=== PATIENT | female | born 1985 | race Caucasian/White ===

== ENCOUNTER 2017-07-29 05:24 | Inpatient (IN) | payer MEDICAID ==
[2017-07-29] MEDS ORDERED: Methylergonovine 0.2 MG/1 ML Amp IM PRN (06:05)
[2017-07-29] MEDS ORDERED: Misoprostol 200 MCG Tab PO PRN (06:05)
[2017-07-29] MEDS ORDERED: Sodium Chloride 0.9% 10 ML Syringe FLUSH PRN (06:05)
[2017-07-29] MEDS ORDERED: Butorphanol 1 MG/ML SDV IVPUSH PRN (06:05)
[2017-07-29] MEDS ORDERED: Ampicillin 2 GM in Sodium Chloride 0.9% 100 ML IV ONE (06:05)
[2017-07-29] MEDS ORDERED: Carboprost Tromethamine 250 MCG/1 ML Amp IM PRN (06:05)
[2017-07-29] MEDS ORDERED: Sodium Chloride 0.9% 2.5 ML Syringe FLUSH PRN (06:05)
[2017-07-29] MEDS ORDERED: Lidocaine 1% 50 ML MDV INJECT PRN (06:05)
[2017-07-29] MEDS ORDERED: Nalbuphine 10 MG/1 ML Vial IVPUSH PRN (06:05)
[2017-07-29] MEDS ORDERED: Water For Irrigation,Sterile 1,000 ML Container IRR PRN (06:05)
[2017-07-29] MEDS ORDERED: Oxytocin/0.9 % Sodium Chloride 30 UNIT/500 ML BAG IV SCH (06:15)
[2017-07-29] MEDS ORDERED: Lactated Ringers 1,000 ML IV SCH ×2 (06:15→17:30)
--- NOTE | 2017-07-29 07:35 | PCM.LDHP ---
L&D History of Present Illness - General Date of Service: 07/29/17 Admit Problem/Dx: Patient Status Order with Admit Dx/Problem 07/29/17 06:05 Patient Status [ADT] Routine Admission Diagnosis/Problem Admission Diagnosis/Problem Source of Information: Patient History Limitations: Reports: No Limitations - History of Present Illness Improves with: Reports: None Worsens with: Reports: None Associated Symptoms: Reports: N - Related Data Allergies/Adverse Reactions: Allergies Allergy/AdvReac Type Severity Reaction Status Date / Time acetaminophen [From Vicodin] Allergy Nausea Verified 07/29/17 06:02 hydrocodone [From Vicodin] Allergy Nausea Verified 07/29/17 06:02 sulfamethoxazole Allergy Nausea and Verified 07/29/17 06:02 [From Bactrim] Vomiting trimethoprim [From Bactrim] Allergy Nausea and Verified 07/29/17 06:02 Vomiting Past Medical History HEENT History: Reports: Impaired Vision Genitourinary History: Reports: Other (See Below) Other Genitourinary History: one kidney-congenital 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: 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 History: Reports: Fracture Neurological History: Reports: Concussion Psychiatric 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 Dermatologic History: Reports: Eczema - Infectious Disease History Infectious Disease History: Reports: Chicken Pox, Mononucleosis - Past Surgical History Female Surgical History: Reports: Other (See Below) Other Female Surgeries/Procedures: vaginal septum removed Social & Family History - Family History HEENT: Reports: Hearing Impairment, Impaired Vision Cardiac: Reports: Heart Murmur : Reports: Renal Calculus OBGYN: Reports: 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: Reports: Arthritis, Back pain, Chronic Neurological: Reports: Parkinson's H&P Review of Systems - Review of Systems: Review Of Systems: See Below General: Reports: No Symptoms HEENT: Reports: No Symptoms Pulmonary: Reports: No Symptoms Cardiovascular: Reports: No Symptoms Gastrointestinal: Reports: No Symptoms Genitourinary: Reports: No Symptoms 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: Reports: No Symptoms Skin: Reports: No Symptoms Psychiatric: Reports: No Symptoms Neurological: Reports: No Symptoms Hematologic/Lymphatic: Reports: No Symptoms Immunologic: Reports: No Symptoms L&D Exam - Exam Exam: See Below - Vital Signs Weight: 111.584 kg - OB Specific Fundal Height In cm: 39 Contraction Intensity: Mild Movement: Active Heart Tones: Present Presentation: Vertex - Burgess Score Burgess Score Cervix Position: Midposition Burgess Score Consistency: Medium Burgess Score Effacement: 51-70% Burgess Score Dilation: 1-2 cm Burgess Score Infant's Station: -2 Burgess Score Total: 6 - Exam General: Alert, Oriented HEENT: PERRLA, Conjunctiva Clear, EACs Clear, EOMI, Hearing Intact, Mucosa Moist & Zimmerman, Nares Patent, Normal Nasal Septum, Posterior Pharynx Clear, TMs Clear Neck: Supple, Trachea Midline Lungs: Clear to Auscultation, Normal Respiratory Effort Cardiovascular: Regular Rate, Regular Rhythm GI/Abdominal Exam: Normal Bowel Sounds, Soft, Non-Tender, No Organomegaly, No Distention, No Abnormal Bruit, No Mass, Pelvis Stable Rectal Exam: Normal Exam, Normal Rectal Tone Genitourinary: Normal external exam, Normal bimanual exam, Normal speculum exam Back Exam: Normal Inspection, Full Range of Motion Extremities: Normal Inspection, Normal Range of Motion, Non-Tender, No Pedal Edema, Normal Capillary Refill Skin: Warm, Dry, Intact Neurological: Cranial Nerves Intact, Reflexes Equal Bilateral Psychiatric: Alert, Normal Affect, Normal Mood - Patient Data Lab Results Last 24 hrs: Laboratory Results - last 24 hr 07/29/17 Range/Units 06:34 WBC 11.17 H (4.0-11.0) K/uL RBC 4.29 L (4.30-5.90) M/uL Hgb 13.8 (12.0-16.0) g/dL Hct 40.1 (36.0-46.0) % MCV 93.5 (80.0-98.0) fL MCH 32.2 H (27.0-32.0) pg MCHC 34.4 (31.0-37.0) g/dL RDW Std Deviation 48.2 (28.0-62.0) fl RDW Coeff of Fatuma 14 (11.0-15.0) % Plt Count 240 (150-400) K/uL MPV 10.00 (7.40-12.00) fL Nucleated RBC % 0.0 /100WBC Nucleated RBCs # 0 K/uL Result Diagrams: 07/29/17 06:34 Problem List Initiated/Reviewed/Updated: Yes Orders Last 24hrs: Active Orders 24 hr Category Date Time Status Patient Status [ADT] Routine ADT 07/29/17 06:05 Active Heart Tones [RC] CONTINUOUS Care 07/29/17 06:05 Active Non Stress Test [RC] PER UNIT ROUTINE Care 07/29/17 06:05 Active May Shower [RC] ASDIRECTED Care 07/29/17 06:05 Active Notify Provider [RC] PRN Care 07/29/17 06:05 Active Up ad Lydia [RC] ASDIRECTED Care 07/29/17 06:05 Active Vaginal Exam [RC] PRN Care 07/29/17 06:05 Active Vital Signs [RC] PER UNIT ROUTINE Care 07/29/17 06:05 Active TYPE AND SCREEN [BBK] Routine Lab 07/29/17 06:34 Received Butorphanol [Stadol] Med 07/29/17 06:05 Active 1 mg IVPUSH Q1H PRN Carboprost Tromethamine [Hemabate DS] Med 07/29/17 06:05 Active 250 mcg IM ASDIRECTED PRN Lactated Ringers [Ringers, Lactated] 1,000 ml Med 07/29/17 06:15 Active IV ASDIRECTED Lidocaine 1% [Xylocaine 1%] Med 07/29/17 06:05 Active 50 ml INJECT .ONCE PRN Methylergonovine [Methergine] Med 07/29/17 06:05 Active 0.2 mg IM ASDIRECTED PRN Misoprostol [Cytotec] Med 07/29/17 06:05 Active 200 mcg PO .ONCE PRN Nalbuphine [Nubain] Med 07/29/17 06:05 Active 10 mg IVPUSH Q1H PRN Oxytocin/0.9 % Sodium Chloride [Oxytocin 30 Unit/500 ML Med 07/29/17 06:15 Active -NS] 30 unit in 500 ml IV TITRATE Sodium Chloride 0.9% [Saline Flush] Med 07/29/17 06:05 Active 10 ml FLUSH ASDIRECTED PRN Sodium Chloride 0.9% [Saline Flush] Med 07/29/17 06:05 Active 2.5 ml FLUSH ASDIRECTED PRN Water For Irrigation,Sterile [Sterile Water for Med 07/29/17 06:05 Active Irrigation] 1,000 ml IRR ASDIRECTED PRN Scalp Electrode [WOMSER] Per Unit Routine Oth 07/29/17 06:05 Ordered Peripheral IV Insertion Adult [OM.PC] Routine Oth 07/29/17 06:05 Ordered Resuscitation Status Routine Resus Stat 07/29/17 06:05 Ordered Medication Orders Butorphanol Tartrate (Stadol) 1 mg IVPUSH Q1H PRN PRN Reason: Pain Carboprost Tromethamine (Hemabate Ds) 250 mcg IM ASDIRECTED PRN PRN Reason: Post Hemorrhage Lactated Ringer's (Ringers, Lactated) 1,000 mls @ 150 mls/hr IV ASDIRECTED [facility] Last Admin: 07/29/17 06:34 Dose: 150 mls/hr Oxytocin/Sodium Chloride (Oxytocin 30 Unit/500 Ml-Ns) 30 unit in 500 mls @ 500 mls/hr IV TITRATE [facility] Lidocaine HCl (Xylocaine 1%) 50 ml INJECT .ONCE PRN PRN Reason: Laceration repair Methylergonovine Maleate (Methergine) 0.2 mg IM ASDIRECTED PRN PRN Reason: Post Hemorrhage Misoprostol (Cytotec) 200 mcg PO .ONCE PRN PRN Reason: Post Hemorrhage Nalbuphine HCl (Nubain) 10 mg IVPUSH Q1H PRN PRN Reason: Pain (severe 7-10) Sodium Chloride (Saline Flush) 10 ml FLUSH ASDIRECTED PRN PRN Reason: Keep Vein Open Sodium Chloride (Saline Flush) 2.5 ml FLUSH ASDIRECTED PRN PRN Reason: Keep Vein Open Sterile Water (Sterile Water For Irrigation) 1,000 ml IRR ASDIRECTED PRN PRN Reason: delivery Assessment/Plan Comment:: Term ( 39+) admited inearly active labor with SROM. 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 GBS tatus is postive. Plane toon antibiotic and induce with Cytotec.
[2017-07-29] MEDS ORDERED: Misoprostol 25 MCG (1/4 of 100 MCG) Tab PO ONE (08:18)
[2017-07-29] MEDS ORDERED: Misoprostol 25 MCG (1/4 of 100 MCG) Tab VAG ONE (08:19)
[2017-07-29] MEDS: Ampicillin 1 GM in Sodium Chloride 0.9% 50 ML IV SCH ×2 (11:05→14:47)
[2017-07-29] MEDS: Misoprostol 25 MCG (1/4 of 100 MCG) Tab PO SCH (13:49)
[2017-07-29] MEDS: Misoprostol 25 MCG (1/4 of 100 MCG) Tab VAG SCH (13:49)
[2017-07-29] MEDS ORDERED: Citric Acid/Sodium Citrate Solution 30 ML Cup ONE (16:19)
[2017-07-29] MEDS ORDERED: Ondansetron 4 MG/2 ML SDV ONE (16:32)
[2017-07-29] MEDS ORDERED: Sodium Chloride 0.9% 20 ML ONE (16:32)
[2017-07-29] MEDS ORDERED: ceFAZolin 1 GM Vial ONE (16:32)
[2017-07-29] MEDS ORDERED: Oxytocin 10 Units/1 ML SDV ONE (16:32)
[2017-07-29] MEDS ORDERED: Morphine PF 10 MG/10 ML SDV ONE (16:33)
[2017-07-29] MEDS ORDERED: Succinylcholine/Normal Saline 200 MG/10 ML Syringe ONE (16:35)
[2017-07-29] MEDS ORDERED: Rocuronium 10 MG/ML 10 ML Syringe ONE (16:35)
[2017-07-29] MEDS ORDERED: Propofol 200 MG/20 ML SDV ONE (16:35)
[2017-07-29] MEDS ORDERED: fentaNYL 250 MCG/5 ML SDV ONE (16:36)
[2017-07-29] MEDS ORDERED: Midazolam 1 MG/ML 2 ML SDV ONE (16:36)
[2017-07-29] MEDS ORDERED: HYDROmorphone 2 MG/ML Syringe ONE (17:07)
[2017-07-29] MEDS ORDERED: Neostigmine Methylsulfate 1 MG/ML 5 ML Syringe ONE (17:11)
[2017-07-29] MEDS ORDERED: Octyl 2-Cyanoacrylate 1 Tube ONE (17:13)
[2017-07-29] MEDS ORDERED: Bisacodyl 10 MG Supp RECTAL PRN (17:17)
[2017-07-29] MEDS ORDERED: Ibuprofen 800 MG Tab PO PRN (17:17)
[2017-07-29] MEDS ORDERED: diphenhydrAMINE 50 MG/ML SDV IVPUSH PRN (17:17)
[2017-07-29] MEDS ORDERED: Ondansetron 4 MG/2 ML SDV IV PRN (17:17)
[2017-07-29] MEDS ORDERED: Acetaminophen/oxyCODONE 325-5 MG Tab PO PRN ×2 (17:17)
[2017-07-29] MEDS ORDERED: Lanolin 100% Cream 7 GM Tube TOP PRN (17:17)
--- NOTE | 2017-07-29 17:18 | PCM.PREANE ---
Preanesthetic Assessment - Anesthesia/Transfusion/Family Hx Anesthesia History: Prior Anesthesia Without Reaction Family History of Anesthesia Reaction: No Transfusion History: No Prior Transfusion(s) - Review of Systems General: No Symptoms Pulmonary: No Symptoms Cardiovascular: No Symptoms Gastrointestinal: No Symptoms Neurological: No Symptoms Other: Reports: None - Physical Assessment NPO Status Date: 07/28/17 NPO Status Time: 23:00 (for solids, liquids within the hour) Height: 1.66 m Weight: 111.584 kg ASA Class: 3E Mental Status: Alert & Oriented x3 Airway Class: Mallampati = 3 Dentition: Reports: Normal Dentition ROM/Head Extension: Full Lungs: Clear to Auscultation Cardiovascular: Regular Rate - Lab Values: Laboratory Last Values WBC 11.17 K/uL (4.0-11.0) H 07/29/17 06:34 RBC 4.29 M/uL (4.30-5.90) L 07/29/17 06:34 Hgb 13.8 g/dL (12.0-16.0) 07/29/17 06:34 Hct 40.1 % (36.0-46.0) 07/29/17 06:34 MCV 93.5 fL (80.0-98.0) 07/29/17 06:34 MCH 32.2 pg (27.0-32.0) H 07/29/17 06:34 MCHC 34.4 g/dL (31.0-37.0) 07/29/17 06:34 RDW Std Deviation 48.2 fl (28.0-62.0) 07/29/17 06:34 RDW Coeff of Fatuma 14 % (11.0-15.0) 07/29/17 06:34 Plt Count 240 K/uL (150-400) 07/29/17 06:34 MPV 10.00 fL (7.40-12.00) 07/29/17 06:34 Nucleated RBC % 0.0 /100WBC 07/29/17 06:34 Nucleated RBCs # 0 K/uL 07/29/17 06:34 Blood Type A POSITIVE 07/29/17 06:34 Antibody Screen NEGATIVE 07/29/17 06:34 - Allergies Allergies/Adverse Reactions: Allergies Allergy/AdvReac Type Severity Reaction Status Date / Time acetaminophen [From Vicodin] Allergy Nausea Verified 07/29/17 06:02 hydrocodone [From Vicodin] Allergy Nausea Verified 07/29/17 06:02 sulfamethoxazole Allergy Nausea and Verified 07/29/17 06:02 [From Bactrim] Vomiting trimethoprim [From Bactrim] Allergy Nausea and Verified 07/29/17 06:02 Vomiting - Blood Blood Available: Yes - Anesthesia Plan Pre-Op Medication Ordered: Antacids - Acknowledgements Anesthesia Type Planned: General Anesthesia Pt an Appropriate Candidate for the Planned Anesthesia: Yes Alternatives and Risks of Anesthesia Discussed w Pt/Guardian: Yes Pt/Guardian Understands and Agrees with Anesthesia Plan: Yes Additional Comments: Called for an urgent/emergent c/section. Mother complete, ron breech, buttocks presenting at vaginal entroitus. decels now to 60's at time of anesthesia evaluation of pt on OB floor. nkda (only an intolerance with nausea and vomiting to sulfa and hydrocodone), 111kg, bmi=40, plts =240. Brought emergently to OR. surgeon met us during transport of pt. Pt placed on table, LLD acheived, monitors on, positioned for GA. iv access lost iv during transfer to or table. new iv started, antibiotics given, abdomen prepped, induction drugs given, RSI, ETT placed, surgical incision made. No hypotension. Baby delivered with APGARS of 2,8, and 9. 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 History: Reports: Fracture Neurological History: Reports: Concussion Psychiatric 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 Dermatologic History: Reports: Eczema - Infectious Disease History Infectious Disease History: Reports: Chicken Pox, Mononucleosis - Past Surgical History Female Surgical History: Reports: Other (See Below) Other Female Surgeries/Procedures: vaginal septum removed - SUBSTANCE USE Smoking Status *Q: Former Smoker Tobacco Use Within Last Twelve Months: Cigarettes Second Hand Smoke Exposure: No Recreational Drug Use History: No - CURRENT (IN HOUSE) MEDS Current Meds: Current Medications Butorphanol Tartrate (Stadol) 1 mg IVPUSH Q1H PRN PRN Reason: Pain Carboprost Tromethamine (Hemabate Ds) 250 mcg IM ASDIRECTED PRN PRN Reason: Post Hemorrhage Lactated Ringer's (Ringers, Lactated) 1,000 mls @ 150 mls/hr IV ASDIRECTED [facility] Last Admin: 07/29/17 06:34 Dose: 150 mls/hr Oxytocin/Sodium Chloride (Oxytocin 30 Unit/500 Ml-Ns) 30 unit in 500 mls @ 500 mls/hr IV TITRATE [facility] Ampicillin Sodium 1 gm/ Sodium (Chloride) 50 mls @ 100 mls/hr IV Q4H [facility] Last Admin: 07/29/17 14:47 Dose: 100 mls/hr Lidocaine HCl (Xylocaine 1%) 50 ml INJECT .ONCE PRN PRN Reason: Laceration repair Methylergonovine Maleate (Methergine) 0.2 mg IM ASDIRECTED PRN PRN Reason: Post Hemorrhage Misoprostol (Cytotec) 200 mcg PO .ONCE PRN PRN Reason: Post Hemorrhage Misoprostol (Cytotec) 25 mcg PO Q4H [facility] Last Admin: 07/29/17 13:49 Dose: Not Given Misoprostol (Cytotec) 25 mcg VAG Q4H [facility] Last Admin: 07/29/17 13:49 Dose: Not Given Nalbuphine HCl (Nubain) 10 mg IVPUSH Q1H PRN PRN Reason: Pain (severe 7-10) Sodium Chloride (Saline Flush) 10 ml FLUSH ASDIRECTED PRN PRN Reason: Keep Vein Open Sodium Chloride (Saline Flush) 2.5 ml FLUSH ASDIRECTED PRN PRN Reason: Keep Vein Open Sterile Water (Sterile Water For Irrigation) 1,000 ml IRR ASDIRECTED PRN PRN Reason: delivery Discontinued Medications Cefazolin Sodium (Ancef) Confirm Administered Dose 2 gm .ROUTE .STK-MED ONE Stop: 07/29/17 16:33 Citric Acid/Sodium Citrate (Bicitra Solution) Confirm Administered Dose 30 ml .ROUTE .STK-MED ONE Stop: 07/29/17 16:20 Fentanyl (Sublimaze) Confirm Administered Dose 250 mcg .ROUTE .STK-MED ONE Stop: 07/29/17 16:37 Hydromorphone HCl (Dilaudid) Confirm Administered Dose 2 mg .ROUTE .STK-MED ONE Stop: 07/29/17 17:08 Ampicillin Sodium 2 gm/ Sodium (Chloride) 100 mls @ 200 mls/hr IV ONETIME ONE Stop: 07/29/17 06:34 Last Admin: 07/29/17 06:40 Dose: 200 mls/hr Sodium Chloride (Normal Saline) Confirm Administered Dose 20 mls @ as directed .ROUTE .STK-MED ONE Stop: 07/29/17 16:33 Midazolam HCl (Versed 1 Mg/Ml) Confirm Administered Dose 2 mg .ROUTE .STK-MED ONE Stop: 07/29/17 16:37 Misoprostol (Cytotec) 25 mcg PO ONETIME ONE Stop: 07/29/17 08:19 Last Admin: 07/29/17 08:41 Dose: 25 mcg Misoprostol (Cytotec) 25 mcg VAG ONETIME ONE Stop: 07/29/17 08:20 Last Admin: 07/29/17 08:42 Dose: 25 mcg Morphine Sulfate (Duramorph Pf) Confirm Administered Dose 10 mg .ROUTE .STK-MED ONE Stop: 07/29/17 16:34 Ondansetron HCl (Zofran) Confirm Administered Dose 4 mg .ROUTE .STK-MED ONE Stop: 07/29/17 16:33 Oxytocin (Pitocin) Confirm Administered Dose 20 unit .ROUTE .STK-MED ONE Stop: 07/29/17 16:33 Propofol (Diprivan 20 Ml) Confirm Administered Dose 200 mg .ROUTE .STK-MED ONE Stop: 07/29/17 16:36 Rocuronium Nubieber (Zemuron) Confirm Administered Dose 100 mg .ROUTE .STK-MED ONE Stop: 07/29/17 16:36 Succinylcholine Chloride (Succinylcholine In Ns Pf) Confirm Administered Dose 200 mg .ROUTE .STK-MED ONE Stop: 07/29/17 16:36
--- NOTE | 2017-07-29 17:21 | PCM.OPNOTE ---
- General Post-Op/Procedure Note Date of Surgery/Procedure: 07/29/17 Operative Procedure(s): Primary C/Section Pre Op Diagnosis: Tem Breech Post-Op Diagnosis: Same Anesthesia Technique: General ET Tube Primary Surgeon: Gaston Peoples Radiator Cleaner: Kalyn Rushing EBL in mLs: 900 Complications: None Condition: Good
[2017-07-29] MEDS: fentaNYL 100 MCG/2 ML SDV IVPUSH PRN ×2 (17:41→17:51)
[2017-07-29] MEDS ORDERED: fentaNYL 100 MCG/2 ML SDV ONE (17:42)
--- NOTE | 2017-07-29 18:01 | PCM.SN ---
- Free Text/Narrative Note: Pt on arrival to PACU has changed from SR to [place] PVC's at a rate of 106, at this time she has maintained this for 30 minutes. VSS, denies chest pain at this time. BMP, Mag, and EKG ordered.
[2017-07-29] MEDS: Ketorolac 30 MG/ML SDV IVPUSH SCH ×2 (18:19→23:31)
--- NOTE | 2017-07-29 18:26 | PCM.POSTAN ---
POST ANESTHESIA ASSESSMENT - MENTAL STATUS Mental Status: Alert, Oriented - VITAL SIGNS Pulse Rate: 115 SaO2: 99 Resp Rate: 18 Blood Pressure: 153/60 - RESPIRATORY Respiratory Status: Respiratory Rate WNL, Airway Patent, O2 Saturation Stable - CARDIOVASCULAR CV Status: Pulse Rate WNL, Blood Pressure Stable - GASTROINTESTINAL GI Status: No Symptoms - POST OP HYDRATION Hydration Status: Adequate & Stable - OBSERVATIONS Free Text/Narrative:: Pt stable, labs pending, tele-pack placed on patient.
[2017-07-29 18:27] LABS: CHLORIDE,CL 104 mmol/L (98-110); SODIUM,NA 136 mmol/L (136-146)
[2017-07-29] MEDS ORDERED: Magnesium Sulfate/Water 2 GM in Premix Bag 1 BAG IV ONE (18:49)
--- NOTE | 2017-07-29 21:26 | PCM48HPAN ---
Post Anesthesia Note - EVALUATION WITHIN 48HRS OF ANESTHETIC Vital Signs in Normal Range: Yes Patient Participated in Evaluation: Yes Respiratory Function Stable: Yes Airway Patent: Yes Cardiovascular Function Stable: Yes Hydration Status Stable: Yes Pain Control Satisfactory: Yes Nausea and Vomiting Control Satisfactory: Yes Mental Status Recovered: Yes
[2017-07-29] MEDS: Docusate Sodium 100 MG Cap PO SCH (22:26)
--- NOTE | 2017-07-29 22:28 | OR ---
SURGEON: Gaston Peoples MD DATE OF PROCEDURE: PREOPERATIVE DIAGNOSES: 1. Term . 2. Breech presentation. 3. Uterus didelphys. 4. distress. POSTOPERATIVE DIAGNOSES: 1. Term . 2. Breech presentation. 3. Uterus didelphys. OPERATION PERFORMED: Primary low transverse section. FRONT OFFICE COORDINATOR: Kalyn Rushing CNM. ANESTHESIA: General endotracheal intubation, Ricardo Martins and Dr. Lawson. ESTIMATED BLOOD LOSS: 900 mL. COMPLICATIONS: None. FINDINGS: Male fetus. score reported to be 2, 7, and 9. CUSHION MAKER: Dr. Sawyer. INDICATIONS FOR SURGERY: This patient has uterus didelphys. She is term. She has had no complication prenatally. She presented with a spontaneous rupture of the membrane and at the time she was admitted, she was 2 to 3 cm, thought to be vertex, and out of the pelvis and so we admitted her and we started induction on her. I scanned this patient earlier in the last 2 days in the office and she was in vertex position, but later on, when the patient progressed and she had an artificial rupture of membranes, there was an evidence that the patient may be in a breech presentation, so ultrasound was done by sheldon Munguiaife and she confirmed the fact that the patient is a breech presentation. The patient started having decelerations and not recovering quickly, so the patient was rushed to the operative room and emergency section under general anesthesia was done. Later on, when the fetus was delivered, it was found that the fetus does have three nuchal cord. PROCEDURE IN DETAIL: The patient was brought to the OR, properly identified, and after adequate level of general anesthesia with a Mccray catheter in the bladder, a low transverse Pfannenstiel skin incision was done. The Eladia's fascia and rectus fascia opened in the direction of the incision. The two recti muscles were and peritoneal cavity was entered, and then the bladder flap was raised in the usual manner pushing the bladder away from the lower uterine segment. Low transverse uterine incision was done and extended manually with the hand. The fetus was in breech presentation delivered without any problem. It was noted that the fetus had three nuchal cord and intermediately handed to Dr. Sawyer for resuscitation and later on, the score reported to be 2, 7, and 9. The placenta delivered spontaneous, complete, and intact, and then repair of the lower uterine segment done with 2-0 Vicryl continuous interlocking in 2 layers. Reperitonealization done with 3-0 Vicryl continuous and the peritoneal cavity evacuated completely from all blood and blood clot, and closed with 3-0 Vicryl continuous and the rectus fascia is closed with #1 PDS double strand continuous, Eladia's fascia with 3-0 Vicryl continuous, and skin closed in a subcuticular fashion with 4-0 Vicryl monofilamentous. Instrument and sponge count was correct. The patient tolerated the procedure well and went to recovery room in stable general condition. ATUL / MALVIN /[id number]
[2017-07-30 05:48] LABS: CHLORIDE,CL 103 mmol/L (98-110); SODIUM,NA 134 mmol/L (136-146)
[2017-07-30] MEDS ORDERED: Lidocaine 1% 2 ML ONE (07:00)
--- NOTE | 2017-07-30 07:12 | PCM.SN ---
- Free Text/Narrative Note: Called by nursing as they have been unable to obtain PIV access and the previous IV has infiltrated. 1% Lidocaine was infiltrated prior to attempting per pt request. 20g PIV started to Left FA under U/S. IV draws blood and flushes with ease. Secured with tape and tegaderm.
[2017-07-30] MEDS: Misoprostol 25 MCG (1/4 of 100 MCG) Tab VAG SCH (07:13)
[2017-07-30] MEDS: Misoprostol 25 MCG (1/4 of 100 MCG) Tab PO SCH (07:13)
[2017-07-30] MEDS: Ampicillin 1 GM in Sodium Chloride 0.9% 50 ML IV SCH (07:14)
[2017-07-30] MEDS: Ketorolac 30 MG/ML SDV IVPUSH SCH ×3 (07:20→21:10)
--- NOTE | 2017-07-30 08:05 | PCM.PNPP ---
- General Info Date of Service: 07/30/17 Functional Status: Reports: Pain Controlled - Review of Systems General: Reports: No Symptoms HEENT: Reports: No Symptoms Pulmonary: Reports: No Symptoms Cardiovascular: Reports: No Symptoms Gastrointestinal: Reports: No Symptoms Genitourinary: Reports: No Symptoms 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: Reports: No Symptoms Skin: Reports: No Symptoms Neurological: Reports: No Symptoms Psychiatric: Reports: No Symptoms - General Info Date of Service: 07/30/17 - Patient Data Vital Signs - Most Recent: Last Vital Signs Temp 37.1 C 07/29/17 19:15 Pulse 100 07/30/17 04:30 Resp 16 07/30/17 04:30 BP 115/65 07/30/17 04:30 Pulse Ox 99 07/30/17 04:30 Weight - Most Recent: 111.584 kg I&O - Last 24 Hours: Intake & Output 07/29/17 07/30/17 07/30/17 22:59 06:59 14:59 Intake Total 2600 Output Total 340 1200 Balance 2260 -1200 Lab Results - Last 24 Hours: Laboratory Results - last 24 hr 07/29/17 07/29/17 07/30/17 Range/Units 18:05 18:05 05:16 Hgb 9.6 L (12.0-16.0) g/dL Hct 28.2 L (36.0-46.0) % Sodium 136 (136-146) mmol/L Potassium 4.3 (3.5-5.1) mmol/L Chloride 104 (98-110) mmol/L Carbon Dioxide 21 (21-31) mmol/L BUN 10 (6.0-23.0) mg/dL Creatinine 0.7 (0.6-1.5) mg/dL Est Cr Clr Drug Dosing 107.88 mL/min Estimated GFR (MDRD) > 60.0 ml/min Glucose 127 H (60-110) mg/dL Calcium 8.9 (8.8-10.8) mg/dL Magnesium 1.0 L (1.5-2.3) mEq/L 07/30/17 Range/Units 05:16 Hgb (12.0-16.0) g/dL Hct (36.0-46.0) % Sodium 134 L (136-146) mmol/L Potassium 4.5 (3.5-5.1) mmol/L Chloride 103 (98-110) mmol/L Carbon Dioxide 24 (21-31) mmol/L BUN 9 (6.0-23.0) mg/dL Creatinine 0.7 (0.6-1.5) mg/dL Est Cr Clr Drug Dosing 107.88 mL/min Estimated GFR (MDRD) > 60.0 ml/min Glucose 99 (60-110) mg/dL Calcium 8.6 L (8.8-10.8) mg/dL Magnesium 1.4 L (1.5-2.3) mEq/L Med Orders - Current: Current Medications Bisacodyl (Dulcolax) 10 mg RECTAL .ONCE PRN PRN Reason: Constipation Butorphanol Tartrate (Stadol) 1 mg IVPUSH Q1H PRN PRN Reason: Pain Carboprost Tromethamine (Hemabate Ds) 250 mcg IM ASDIRECTED PRN PRN Reason: Post Hemorrhage Diphenhydramine HCl (Benadryl) 25 mg IVPUSH Q6H PRN PRN Reason: Itching or Nausea Last Admin: 07/29/17 18:05 Dose: 25 mg Docusate Sodium (Colace) 100 mg PO BID [facility] Last Admin: 07/29/17 22:26 Dose: 100 mg Emollient Ointment (Lansinoh Hpa) 0 gm TOP ASDIRECTED PRN PRN Reason: Sore Nipples Lactated Ringer's (Ringers, Lactated) 1,000 mls @ 150 mls/hr IV ASDIRECTED [facility] Last Admin: 07/29/17 06:34 Dose: 150 mls/hr Oxytocin/Sodium Chloride (Oxytocin 30 Unit/500 Ml-Ns) 30 unit in 500 mls @ 500 mls/hr IV TITRATE [facility] Ampicillin Sodium 1 gm/ Sodium (Chloride) 50 mls @ 100 mls/hr IV Q4H [facility] Last Admin: 07/30/17 07:14 Dose: Not Given Lactated Ringer's (Ringers, Lactated) 1,000 mls @ 125 mls/hr IV ASDIRECTED [facility] Last Admin: 07/29/17 23:39 Dose: 125 mls/hr Ibuprofen (Motrin) 800 mg PO Q8H PRN PRN Reason: mild pain or fever Ketorolac Tromethamine (Toradol) 30 mg IVPUSH Q6H [facility] Stop: 07/30/17 17:31 Last Admin: 07/30/17 07:20 Dose: 30 mg Lidocaine HCl (Xylocaine 1%) 50 ml INJECT .ONCE PRN PRN Reason: Laceration repair Methylergonovine Maleate (Methergine) 0.2 mg IM ASDIRECTED PRN PRN Reason: Post Hemorrhage Misoprostol (Cytotec) 200 mcg PO .ONCE PRN PRN Reason: Post Hemorrhage Misoprostol (Cytotec) 25 mcg PO Q4H [facility] Last Admin: 07/30/17 07:13 Dose: Not Given Misoprostol (Cytotec) 25 mcg VAG Q4H [facility] Last Admin: 07/30/17 07:13 Dose: Not Given Nalbuphine HCl (Nubain) 10 mg IVPUSH Q1H PRN PRN Reason: Pain (severe 7-10) Ondansetron HCl (Zofran) 4 mg IV Q4H PRN PRN Reason: Nausea/Vomiting Oxycodone/Acetaminophen (Percocet 325-5 Mg) 1 tab PO Q4H PRN PRN Reason: Pain (moderate 4-6) Oxycodone/Acetaminophen (Percocet 325-5 Mg) 2 tab PO Q4H PRN PRN Reason: Pain (moderate 4-6) Sodium Chloride (Saline Flush) 10 ml FLUSH ASDIRECTED PRN PRN Reason: Keep Vein Open Sodium Chloride (Saline Flush) 2.5 ml FLUSH ASDIRECTED PRN PRN Reason: Keep Vein Open Sterile Water (Sterile Water For Irrigation) 1,000 ml IRR ASDIRECTED PRN PRN Reason: delivery Discontinued Medications Cefazolin Sodium (Ancef) Confirm Administered Dose 2 gm .ROUTE .STK-MED ONE Stop: 07/29/17 16:33 Citric Acid/Sodium Citrate (Bicitra Solution) Confirm Administered Dose 30 ml .ROUTE .STK-MED ONE Stop: 07/29/17 16:20 Last Admin: 07/30/17 07:13 Dose: Not Given Fentanyl (Sublimaze) Confirm Administered Dose 250 mcg .ROUTE .STK-MED ONE Stop: 07/29/17 16:37 Fentanyl (Sublimaze) 50 mcg IVPUSH Q5M PRN PRN Reason: Pain (severe 7-10) Stop: 07/30/17 17:41 Last Admin: 07/29/17 17:51 Dose: 50 mcg Fentanyl (Sublimaze) Confirm Administered Dose 100 mcg .ROUTE .STK-MED ONE Stop: 07/29/17 17:43 Last Admin: 07/30/17 07:14 Dose: Not Given Glycopyrrolate () Confirm Administered Dose 1 mg .ROUTE .STK-MED ONE Stop: 07/29/17 17:12 Hydromorphone HCl (Dilaudid) Confirm Administered Dose 2 mg .ROUTE .STK-MED ONE Stop: 07/29/17 17:08 Ampicillin Sodium 2 gm/ Sodium (Chloride) 100 mls @ 200 mls/hr IV ONETIME ONE Stop: 07/29/17 06:34 Last Admin: 07/29/17 06:40 Dose: 200 mls/hr Sodium Chloride (Normal Saline) Confirm Administered Dose 20 mls @ as directed .ROUTE .STK-MED ONE Stop: 07/29/17 16:33 Magnesium Sulfate 2 gm/ Premix 50 mls @ 50 mls/hr IV ONETIME ONE Stop: 07/29/17 19:48 Last Admin: 07/29/17 19:09 Dose: 50 mls/hr Lidocaine HCl (Xylocaine-Mpf 1%) Confirm Administered Dose 2 mls @ as directed .ROUTE .STK-MED ONE Stop: 07/30/17 07:01 Midazolam HCl (Versed 1 Mg/Ml) Confirm Administered Dose 2 mg .ROUTE .STK-MED ONE Stop: 07/29/17 16:37 Misoprostol (Cytotec) 25 mcg PO ONETIME ONE Stop: 07/29/17 08:19 Last Admin: 07/29/17 08:41 Dose: 25 mcg Misoprostol (Cytotec) 25 mcg VAG ONETIME ONE Stop: 07/29/17 08:20 Last Admin: 07/29/17 08:42 Dose: 25 mcg Morphine Sulfate (Duramorph Pf) Confirm Administered Dose 10 mg .ROUTE .STK-MED ONE Stop: 07/29/17 16:34 Neostigmine Methylsulfate (Neostigmine) Confirm Administered Dose 5 mg .ROUTE .STK-MED ONE Stop: 07/29/17 17:12 Octyl Cyanoacrylate (Dermabond Advance) Confirm Administered Dose 1 applic .ROUTE .STK-MED ONE Stop: 07/29/17 17:14 Ondansetron HCl (Zofran) Confirm Administered Dose 4 mg .ROUTE .STK-MED ONE Stop: 07/29/17 16:33 Oxytocin (Pitocin) Confirm Administered Dose 20 unit .ROUTE .STK-MED ONE Stop: 07/29/17 16:33 Propofol (Diprivan 20 Ml) Confirm Administered Dose 200 mg .ROUTE .STK-MED ONE Stop: 07/29/17 16:36 Rocuronium [place] (Zemuron) Confirm Administered Dose 100 mg .ROUTE .STK-MED ONE Stop: 07/29/17 16:36 Succinylcholine Chloride (Succinylcholine In Ns Pf) Confirm Administered Dose 200 mg .ROUTE .STK-MED ONE Stop: 07/29/17 16:36 - Interaction Infant Disposition, : in Room with Family Infant Interaction: Holding Feeding: Attempted ; Nursed Fair/Poor Support Person: , Significant Other - Recovery Exam Fundal Tone: Firm Fundal Level: At Umbilicus Fundal Placement: Midline Lochia Amount: Scant Lochia Color: Rubra/Red Perineum Description: Intact, Minimal Bruising/Swelling Episiotomy/Laceration: None Bladder Status: Indwelling Catheter in Place Urinary Elimination: Indwelling Catheter - Exam General: Alert, Oriented HEENT: Pupils Equal Neck: Supple Lungs: Clear to Auscultation, Normal Respiratory Effort Cardiovascular: Regular Rate, Regular Rhythm GI/Abdominal Exam: Normal Bowel Sounds, Soft, Non-Tender, No Organomegaly, No Distention, No Abnormal Bruit, No Mass, Pelvis Stable Extremities: Normal Inspection, Normal Range of Motion, Non-Tender, No Pedal Edema, Normal Capillary Refill Skin: Warm, Dry, Intact Wound/Incisions: Healing Well Neurological: No New Focal Deficit Psy/Mental Status: Alert, Normal Affect, Normal Mood - Problem List Review Problem List Initiated/Reviewed/Updated: Yes - My Orders Last 24 Hours: My Active Orders 07/29/17 10:15 Ampicillin 1 gm Sodium Chloride 0.9% [Normal Saline] 50 ml IV Q4H 07/29/17 12:45 Misoprostol [Cytotec] 25 mcg PO Q4H Misoprostol [Cytotec] 25 mcg VAG Q4H 07/29/17 17:17 Acetaminophen/oxyCODONE [Percocet 325-5 MG] 1 tab PO Q4H PRN Acetaminophen/oxyCODONE [Percocet 325-5 MG] 2 tab PO Q4H PRN Bisacodyl [Dulcolax] 10 mg RECTAL .ONCE PRN Ibuprofen [Motrin] 800 mg PO Q8H PRN Lanolin [Lansinoh HPA] See Dose Instructions TOP ASDIRECTED PRN Ondansetron [Zofran] 4 mg IV Q4H PRN diphenhydrAMINE [Benadryl] 25 mg IVPUSH Q6H PRN 07/29/17 17:18 Patient Status [ADT] Routine Ambulate [RC] PER UNIT ROUTINE Antiembolic Devices [RC] PER UNIT ROUTINE Communication Order [RC] PER UNIT ROUTINE Communication Order [RC] PER UNIT ROUTINE Communication Order [RC] Per Unit Routine May Shower [RC] ASDIRECTED RT Incentive Spirometry [RC] Q2HWA Vital Signs [RC] PER UNIT ROUTINE Assess Lochia [WOMSER] Per Unit Routine Assess Uterine Involution [WOMSER] Per Unit Routine Breast Pump [WOMSER] Per Unit Routine Peripheral IV Discontinue [OM.PC] Routine Sequential Compression Device [OM.PC] Per Unit Routine 07/29/17 17:30 Ketorolac [Toradol] 30 mg IVPUSH Q6H Lactated Ringers [Ringers, Lactated] 1,000 ml IV ASDIRECTED 07/29/17 21:00 Docusate Sodium [Colace] 100 mg PO BID 07/30/17 Breakfast Regular Diet [DIET] - Assessment Assessment:: S/P C/ Section doing well. - Plan Plan:: Term ( 39+) admited inearly active labor with SROM. 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 GBS tatus is postive. Plane toon antibiotic and induce with Cytotec.
[2017-07-30] MEDS: Docusate Sodium 100 MG Cap PO SCH ×2 (17:04→21:11)
[2017-07-30] MEDS ORDERED: Ketorolac 30 MG/ML SDV ONE (20:53)
--- NOTE | 2017-07-31 10:14 | PCM.DCSUM1 ---
Discharge Summary - Discharge Data Discharge Date: 07/31/17 Discharge Disposition: Home, Self-Care 01 Condition: Good - Patient Summary/Data Operative Procedure(s) Performed: Primary C/Section - Patient Instructions Diet: Usual Diet as Tolerated Driving: Do Not Drive Showering/Bathing: May Shower Wound/Incision Care: Keep Operative Site/Wound Site Clean and Dry Notify Provider of: Fever, Increased Pain, Nausea and/or Vomiting - Discharge Plan Referrals: [facility] [Outside] Gaston Peoples MD [Physician] - ( week- August 04 @ 1:30pm w/ Dr. Peoples week- September 07 @ 10:45am w/ Dr. Peoples ) - General Info Date of Service: 07/31/17 Functional Status: Reports: Pain Controlled - Review of Systems General: Reports: No Symptoms HEENT: Reports: No Symptoms Pulmonary: Reports: No Symptoms Cardiovascular: Reports: No Symptoms Gastrointestinal: Reports: No Symptoms Genitourinary: Reports: No Symptoms 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: Reports: No Symptoms Skin: Reports: No Symptoms Neurological: Reports: No Symptoms Psychiatric: Reports: No Symptoms - Patient Data Vitals - Most Recent: Last Vital Signs Temp 37.2 C 07/31/17 08:00 Pulse 105 H 07/31/17 08:00 Resp 16 07/31/17 08:00 BP 114/64 07/31/17 08:00 Pulse Ox 96 07/31/17 08:00 Weight - Most Recent: 111.584 kg Med Orders - Current: Current Medications Bisacodyl (Dulcolax) 10 mg RECTAL .ONCE PRN PRN Reason: Constipation Butorphanol Tartrate (Stadol) 1 mg IVPUSH Q1H PRN PRN Reason: Pain Carboprost Tromethamine (Hemabate Ds) 250 mcg IM ASDIRECTED PRN PRN Reason: Post Hemorrhage Diphenhydramine HCl (Benadryl) 25 mg IVPUSH Q6H PRN PRN Reason: Itching or Nausea Last Admin: 07/29/17 18:05 Dose: 25 mg Docusate Sodium (Colace) 100 mg PO BID [facility] Last Admin: 07/30/17 21:11 Dose: 100 mg Emollient Ointment (Lansinoh Hpa) 0 gm TOP ASDIRECTED PRN PRN Reason: Sore Nipples Lactated Ringer's (Ringers, Lactated) 1,000 mls @ 150 mls/hr IV ASDIRECTED [facility] Last Admin: 07/29/17 06:34 Dose: 150 mls/hr Oxytocin/Sodium Chloride (Oxytocin 30 Unit/500 Ml-Ns) 30 unit in 500 mls @ 500 mls/hr IV TITRATE [facility] Ampicillin Sodium 1 gm/ Sodium (Chloride) 50 mls @ 100 mls/hr IV Q4H [facility] Last Admin: 07/30/17 07:14 Dose: Not Given Lactated Ringer's (Ringers, Lactated) 1,000 mls @ 125 mls/hr IV ASDIRECTED [facility] Last Admin: 07/29/17 23:39 Dose: 125 mls/hr Ibuprofen (Motrin) 800 mg PO Q8H PRN PRN Reason: mild pain or fever Lidocaine HCl (Xylocaine 1%) 50 ml INJECT .ONCE PRN PRN Reason: Laceration repair Methylergonovine Maleate (Methergine) 0.2 mg IM ASDIRECTED PRN PRN Reason: Post Hemorrhage Misoprostol (Cytotec) 200 mcg PO .ONCE PRN PRN Reason: Post Hemorrhage Misoprostol (Cytotec) 25 mcg PO Q4H [facility] Last Admin: 07/30/17 07:13 Dose: Not Given Misoprostol (Cytotec) 25 mcg VAG Q4H [facility] Last Admin: 07/30/17 07:13 Dose: Not Given Nalbuphine HCl (Nubain) 10 mg IVPUSH Q1H PRN PRN Reason: Pain (severe 7-10) Ondansetron HCl (Zofran) 4 mg IV Q4H PRN PRN Reason: Nausea/Vomiting Oxycodone/Acetaminophen (Percocet 325-5 Mg) 1 tab PO Q4H PRN PRN Reason: Pain (moderate 4-6) Oxycodone/Acetaminophen (Percocet 325-5 Mg) 2 tab PO Q4H PRN PRN Reason: Pain (moderate 4-6) Sodium Chloride (Saline Flush) 10 ml FLUSH ASDIRECTED PRN PRN Reason: Keep Vein Open Sodium Chloride (Saline Flush) 2.5 ml FLUSH ASDIRECTED PRN PRN Reason: Keep Vein Open Sterile Water (Sterile Water For Irrigation) 1,000 ml IRR ASDIRECTED PRN PRN Reason: delivery Discontinued Medications Cefazolin Sodium (Ancef) Confirm Administered Dose 2 gm .ROUTE .STK-MED ONE Stop: 07/29/17 16:33 Citric Acid/Sodium Citrate (Bicitra Solution) Confirm Administered Dose 30 ml .ROUTE .STK-MED ONE Stop: 07/29/17 16:20 Last Admin: 07/30/17 07:13 Dose: Not Given Fentanyl (Sublimaze) Confirm Administered Dose 250 mcg .ROUTE .STK-MED ONE Stop: 07/29/17 16:37 Fentanyl (Sublimaze) 50 mcg IVPUSH Q5M PRN PRN Reason: Pain (severe 7-10) Stop: 07/30/17 17:41 Last Admin: 07/29/17 17:51 Dose: 50 mcg Fentanyl (Sublimaze) Confirm Administered Dose 100 mcg .ROUTE .STK-MED ONE Stop: 07/29/17 17:43 Last Admin: 07/30/17 07:14 Dose: Not Given Glycopyrrolate () Confirm Administered Dose 1 mg .ROUTE .STK-MED ONE Stop: 07/29/17 17:12 Hydromorphone HCl (Dilaudid) Confirm Administered Dose 2 mg .ROUTE .STK-MED ONE Stop: 07/29/17 17:08 Ampicillin Sodium 2 gm/ Sodium (Chloride) 100 mls @ 200 mls/hr IV ONETIME ONE Stop: 07/29/17 06:34 Last Admin: 07/29/17 06:40 Dose: 200 mls/hr Sodium Chloride (Normal Saline) Confirm Administered Dose 20 mls @ as directed .ROUTE .STK-MED ONE Stop: 07/29/17 16:33 Magnesium Sulfate 2 gm/ Premix 50 mls @ 50 mls/hr IV ONETIME ONE Stop: 07/29/17 19:48 Last Admin: 07/29/17 19:09 Dose: 50 mls/hr Lidocaine HCl (Xylocaine-Mpf 1%) Confirm Administered Dose 2 mls @ as directed .ROUTE .STK-MED ONE Stop: 07/30/17 07:01 Ketorolac Tromethamine (Toradol) 30 mg IVPUSH Q6H [facility] Stop: 07/30/17 17:31 Last Admin: 07/30/17 21:10 Dose: 30 mg Ketorolac Tromethamine (Toradol) Confirm Administered Dose 30 mg .ROUTE .STK- MED ONE Stop: 07/30/17 20:54 Midazolam HCl (Versed 1 Mg/Ml) Confirm Administered Dose 2 mg .ROUTE .STK-MED ONE Stop: 07/29/17 16:37 Misoprostol (Cytotec) 25 mcg PO ONETIME ONE Stop: 07/29/17 08:19 Last Admin: 07/29/17 08:41 Dose: 25 mcg Misoprostol (Cytotec) 25 mcg VAG ONETIME ONE Stop: 07/29/17 08:20 Last Admin: 07/29/17 08:42 Dose: 25 mcg Morphine Sulfate (Duramorph Pf) Confirm Administered Dose 10 mg .ROUTE .STK-MED ONE Stop: 07/29/17 16:34 Neostigmine Methylsulfate (Neostigmine) Confirm Administered Dose 5 mg .ROUTE .STK-MED ONE Stop: 07/29/17 17:12 Octyl Cyanoacrylate (Dermabond Advance) Confirm Administered Dose 1 applic .ROUTE .STK-MED ONE Stop: 07/29/17 17:14 Ondansetron HCl (Zofran) Confirm Administered Dose 4 mg .ROUTE .STK-MED ONE Stop: 07/29/17 16:33 Oxytocin (Pitocin) Confirm Administered Dose 20 unit .ROUTE .STK-MED ONE Stop: 07/29/17 16:33 Propofol (Diprivan 20 Ml) Confirm Administered Dose 200 mg .ROUTE .STK-MED ONE Stop: 07/29/17 16:36 Rocuronium [place] (Zemuron) Confirm Administered Dose 100 mg .ROUTE .STK-MED ONE Stop: 07/29/17 16:36 Succinylcholine Chloride (Succinylcholine In Ns Pf) Confirm Administered Dose 200 mg .ROUTE .STK-MED ONE Stop: 07/29/17 16:36 - Exam General: Reports: Alert, Oriented HEENT: Reports: Pupils Equal, Pupils Reactive, EOMI, Mucous Membr. Moist/[place] Neck: Reports: Supple Lungs: Reports: Clear to Auscultation, Normal Respiratory Effort Cardiovascular: Reports: Regular Rate, Regular Rhythm GI/Abdominal Exam: Normal Bowel Sounds, Soft, Non-Tender, No Organomegaly, No Distention, No Abnormal Bruit, No Mass, Pelvis Stable (Female) Exam: Normal External Exam, Normal Speculum Exam, Normal Bimanual Exam Rectal (Female) Exam: Normal Exam, Normal Rectal Tone Back Exam: Reports: Normal Inspection, Full Range of Motion Extremities: Normal Inspection, Normal Range of Motion, Non-Tender, No Pedal Edema, Normal Capillary Refill Skin: Reports: Warm, Dry, Intact Wound/Incisions: Reports: Healing Well Neurological: Reports: No New Focal Deficit Psy/Mental Status: Reports: Alert, Normal Affect, Normal Mood *Q Meaningful Use (DIS) - VTE *Q VTE Criteria *Q: - Stroke *Q Stroke Criteria *Q: - AMI *Q AMI Criteria *Q:
[2017-07-31 12:03] VITALS: BP 124/71
== END 2017-07-31 12:50 | disposition home or self-care (01) | DRG 766 ==
LOC: MW.OBCHECK 05:24 → MW.OB 05:29 → MW.OBCHECK 06:05 → OBSVTOIN 16:49 → MW.OB 19:38
PROVIDERS: ADMIT Obstetrics & Gynecology; ATTEND Obstetrics & Gynecology
PROC: 10D00Z1 Extraction of Products of Conception, Low, Open Approach (ICD-10-PCS; principal; 2017-07-29)
PROC: 10D00Z1 Extraction of Products of Conception, Low, Open Approach (ICD-10-PCS; 2017-07-29)
PROC: 3E0P7GC Introduction of Other Therapeutic Substance into Female Reproductive, Via Natural or Artificial Opening (ICD-10-PCS; 2017-07-29)
DX: O42.02 Full-term premature rupture of membranes, onset of labor within 24 hours of rupture (principal); O34.03 Maternal care for unspecified congenital malformation of uterus, third trimester; O64.1XX0 Obstructed labor due to breech presentation, not applicable or unspecified; R00.8 Other abnormalities of heart beat; Z3A.39 39 weeks gestation of pregnancy; Z37.0 Single live birth
CPT/HCPCS: 01961; 36410; 36415; 59025; 80048; 83735; 85014; 85018; 85027; 86850; 86900; 86901; 93005; A9270-GY; J0290; J0690; J1170; J1200; J1885; J2250; J2270; J2405; J2590; J2704; J3010; J3475; J7030; J7050; J7120

== ENCOUNTER 2018-04-21 14:59 | Emergency (ER) | payer MEDICAID ==
[2018-04-21 15:17] VITALS: BP 155/87
[2018-04-21] MEDS ORDERED: Albuterol/Ipratropium 3.0-0.5 MG/3 ML Neb Soln NEB ONE (15:43)
--- NOTE | 2018-04-21 15:47 | EDM.PDOC ---
ED HPI GENERAL MEDICAL PROBLEM - General Chief Complaint: Respiratory Problem Stated Complaint: THROAT HURTS Time Seen by Provider: 04/21/18 15:34 - History of Present Illness INITIAL COMMENTS - FREE TEXT/NARRATIVE: HISTORY AND PHYSICAL: History of present illness: The patient is a healthy 32-year-old female with a three-day history of cough productive of clear yellow phlegm, sore throat or hoarse voice that started today and nasal congestion drainage and generalized malaise. The patient has lived here for about one year and moved here from [place] and has no history of seasonal allergies but her has symptoms of runny nose sneezing over the last 1 week. The patient is breast-feeding her 9-month-old child and is otherwise healthy with no abdominal pain vomiting diarrhea urinary complaints and denies . She has no shortness of breath or chest pain but with the cough she feels like sometimes she can't catch her breath. Laryngitis only started today. Review of systems: As per history of present illness and below otherwise all systems reviewed and negative. Past medical history: As per history of present illness and as reviewed below otherwise noncontributory. Surgical history: As per history of present illness and as reviewed below otherwise noncontributory. Social history: No reported history of drug or alcohol abuse. Family history: As per history of present illness and as reviewed below otherwise noncontributory. Physical exam: General: Well-developed well-nourished female who is nontoxic and has forced worse on my evaluation. Is not muffled and she is not breathless. Vital signs are noted by me HEENT: Atraumatic, normocephalic, pupils reactive, negative for conjunctival pallor or scleral icterus, mucous membranes moist, throat clear of exudates but there is diffuse posterior oropharyngeal erythema, uvula is midline, no cervical adenopathy or nuchal rigidity,, neck supple, nontender, trachea midline. Nasal turbinates are boggy bilaterally left greater than right but the nasal passage is patent. There is a mild amount of discrete sinus tenderness on palpation of the forehead and maxillary areas Lungs: Clear to auscultation with coarse breath sounds bilaterally and rhonchi but no wheezing or stridor and no work of breathing, breath sounds equal bilaterally, chest nontender. Heart: S1S2, regular rhythm slightly tachycardic rate on my evaluation Abdomen: Soft, nondistended, nontender. Negative for masses or hepatosplenomegaly. NABS Pelvis: Deferred Genitourinary: Deferred. Rectal: Deferred. Extremities: Atraumatic, negative for cords or calf pain. Neurovascular unremarkable. Neuro: Awake, alert, oriented. Cranial nerves II through XII unremarkable. Cerebellum unremarkable. Motor and sensory unremarkable throughout. Exam nonfocal. Diagnostics: Rapid strep chest x-ray Therapeutics: DuoNeb spacer spacer teaching After nebulizer treatment patient says she doesn't feel significantly different but she is moving air much better and does not have coarse breath sounds. I will give her an inhaler for home with a spacer as well as a burst of antibiotics. I have advised [id number] Claritin use and follow-up with her provider in the clinic Impression: Bronchitis/sinusitis, laryngitis Definitive disposition and diagnosis as appropriate pending reevaluation and review of above. Middle Chest Pain Score (Numeric/FACES): 2 - Related Data Allergies Allergy/AdvReac Type Severity Reaction Status Date / Time hydrocodone [From Vicodin] Allergy Nausea Verified 07/29/17 06:02 sulfamethoxazole Allergy Nausea and Verified 07/29/17 06:02 [From Bactrim] Vomiting trimethoprim [From Bactrim] Allergy Nausea and Verified 07/29/17 06:02 Vomiting Home Meds: Home Meds oxyCODONE HCl/Acetaminophen [Percocet 7.5-325 mg Tablet] 1 each PO Q4H PRN #30 tablet 07/31/17 [Rx] Past Medical History HEENT History: Reports: Impaired Vision Respiratory History: Reports: Asthma Other Respiratory History: childhood asthma Genitourinary History: Reports: Other (See Below) Other Genitourinary History: one kidney-congenital 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 History: Reports: Fracture Neurological History: Reports: Concussion Psychiatric 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 Dermatologic History: Reports: Eczema - Infectious Disease History Infectious Disease History: Reports: None - Past Surgical History Female Surgical History: Reports: Section, Other (See Below) Other Female Surgeries/Procedures: vaginal septum confucianism Social & Family History - Family History HEENT: Reports: Hearing Impairment, Impaired Vision Cardiac: Reports: Heart Murmur : Reports: Renal Calculus OBGYN: Reports: 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: Reports: Arthritis, Back pain, Chronic Neurological: Reports: Parkinson's - Tobacco Use Smoking Status *Q: Never Smoker - Recreational Drug Use Recreational Drug Use: No ED ROS GENERAL - Review of Systems Review Of Systems: ROS reveals no pertinent complaints other than HPI. ED EXAM, GENERAL - Physical Exam Exam: See Below (See dictation) Course - Vital Signs Last Recorded V/S: Last Vital Signs Temp 36.9 C 04/21/18 15:13 Pulse 128 H 04/21/18 15:13 Resp 20 04/21/18 15:13 BP 155/87 H 04/21/18 15:13 Pulse Ox 97 04/21/18 15:13 - Orders/Labs/Meds Orders: Active Orders 24 hr Category Date Time Status Communication Order [RC] STAT Care 04/21/18 17:02 Active RT Aerosol Therapy [RC] ASDIRECTED Care 04/21/18 15:44 Active Chest 2V [CR] Stat Exams 04/21/18 15:44 Taken CULTURE STREP A CONFIRMATION [RM] Stat Lab 04/21/18 16:21 Results STREP SCRN A RAPID W CULT CONF [RM] Stat Lab 04/21/18 16:21 Ordered Meds: Medications Discontinued Medications Generic Name Dose Route Start Last Admin Trade Name Freq PRN Reason Stop Dose Admin Albuterol/Ipratropium 3 ml 04/21/18 15:43 04/21/18 16:29 Duoneb 3.0-0.5 Mg/3 Ml NEB 04/21/18 15:44 3 ml ONETIME ONE Administration Departure - Departure Time of Disposition: 17:06 Disposition: Home, Self-Care 01 Condition: Good Clinical Impression: Bronchitis, Laryngitis Sinusitis Qualifiers: Sinusitis location: unspecified location Chronicity: unspecified Qualified Code (s): J32.9 - Chronic sinusitis, unspecified - Discharge Information Referrals: PCP,None [Primary Care Provider] - Forms: ED Department Discharge Additional Instructions: The following information is given to patients seen in the emergency department who are being discharged to home. This information is to outline your options for follow-up care. We provide all patients seen in our emergency department with a follow-up referral. The need for follow-up, as well as the timing and circumstances, are variable depending upon the specifics of your emergency department visit. If you don't have a primary care physician on staff, we will provide you with a referral. We always advise you to contact your personal physician following an emergency department visit to inform them of the circumstance of the visit and for follow-up with them and/or the need for any referrals to a consulting specialist. The emergency department will also refer you to a specialist when appropriate. This referral assures that you have the opportunity for followup care with a specialist. All of these measure are taken in an effort to provide you with optimal care, which includes your followup. Under all circumstances we always encourage you to contact your private physician who remains a resource for coordinating your care. When calling for followup care, please make the office aware that this follow-up is from your recent emergency room visit. If for any reason you are refused follow-up, please contact the [facility] emergency department at and ask to speak to the emergency department charge nurse. [facility] Primary care- [place] [address] Push hydration and to use all medications as prescribed. Please use over-the- counter Claritin as we discussed and please call and schedule a follow-up with your provider in the clinic and return to ER as needed and as discussed. - My Orders Last 24 Hours: My Active Orders 04/21/18 15:44 RT Aerosol Therapy [RC] ASDIRECTED Chest 2V [CR] Stat 04/21/18 16:21 CULTURE STREP A CONFIRMATION [RM] Stat STREP SCRN A RAPID W CULT CONF [RM] Stat 04/21/18 17:02 Communication Order [] STAT - Assessment/Plan Last 24 Hours: My Active Orders 04/21/18 15:44 RT Aerosol Therapy [RC] ASDIRECTED Chest 2V [CR] Stat 04/21/18 16:21 CULTURE STREP A CONFIRMATION [RM] Stat STREP SCRN A RAPID W CULT CONF [RM] Stat 04/21/18 17:02 Communication Order [] STAT
--- NOTE | 2018-04-22 15:57 | CR ---
EXAM DATE: 04/21/18 PATIENT'S AGE: 32 Patient: STEVE IRVIN Facility: [place], [place] Site . Site : [id number] Study: XRay Chest [id number]/21/2018 4:53:56 PM Ordering Physician: Pooja Sheldon Final Report: HISTORY: Cough and sore throat x3 days. FINDINGS: PA and lateral chest radiograph demonstrates a normal cardiac silhouette. Pulmonary vasculature and davian are normal. No lobar consolidation or pleural effusion is seen. The bony structures are normal. IMPRESSION: No acute cardiopulmonary disease or infiltrate. Dictated by Autumn Moctezuma MD @ 04/21/2018 4:57:17 PM Dictated by: Autumn Moctezuma MD @ 04/21/2018 16:57:24 (Electronic Signature) Report Signed by Proxy. [facility]ITAL[facility]
== END 2018-04-21 17:55 | disposition home or self-care (01) ==
LOC: MW.ED 14:59
DX: J40 Bronchitis, not specified as acute or chronic (principal); J04.0 Acute laryngitis; J32.9 Chronic sinusitis, unspecified; Z88.5 Allergy status to narcotic agent; Z88.1 Allergy status to other antibiotic agents
CPT/HCPCS: 71046; 71046-26; 87081; 87880; 94640; 99285-25

== ENCOUNTER 2019-01-22 05:27 | Emergency (ER) | payer MEDICAID ==
--- NOTE | 2019-01-22 05:53 | EDM.PDOC ---
ED HPI GENERAL MEDICAL PROBLEM - General Stated Complaint: COUGHING Time Seen by Provider: 01/22/19 05:48 - History of Present Illness INITIAL COMMENTS - FREE TEXT/NARRATIVE: HISTORY AND PHYSICAL: History of present illness: Patient 33-year-old female presents with a concern of cough since Wednesday she denies fever chills she denies influenza immunization this year has been no vomiting diarrhea or other concern she denies shortness of breath Review of systems: As per history of present illness and below otherwise all systems reviewed and negative. Past medical history: As per history of present illness and as reviewed below otherwise noncontributory. Surgical history: As per history of present illness and as reviewed below otherwise noncontributory. Social history: No reported history of drug or alcohol abuse. Family history: As per history of present illness and as reviewed below otherwise noncontributory. Physical exam: HEENT: Atraumatic, normocephalic, pupils reactive, negative for conjunctival pallor or scleral icterus, mucous membranes moist, throat clear, neck supple, nontender, trachea midline. Lungs: Clear to auscultation, breath sounds equal bilaterally, chest nontender. Heart: S1S2, regular, negative for clicks, rubs, or JVD. Abdomen: Soft, nondistended, nontender. Negative for masses or hepatosplenomegaly. Negative for costovertebral tenderness. Pelvis: Stable nontender. Genitourinary: Deferred. Rectal: Deferred. Extremities: Atraumatic, negative for cords or calf pain. Neurovascular unremarkable. Neuro: Awake, alert, oriented. Cranial nerves II through XII unremarkable. Cerebellum unremarkable. Motor and sensory unremarkable throughout. Exam nonfocal. Diagnostics: Influenza screen chest x-ray Therapeutics: None Impression: #1 tracheobronchitis Definitive disposition and diagnosis as appropriate pending reevaluation and review of above. - Related Data Allergies Allergy/AdvReac Type Severity Reaction Status Date / Time hydrocodone [From Vicodin] Allergy Nausea Verified 01/22/19 05:57 sulfamethoxazole Allergy Nausea and Verified 01/22/19 05:57 [From Bactrim] Vomiting trimethoprim [From Bactrim] Allergy Nausea and Verified 01/22/19 05:57 Vomiting Home Meds: Home Meds Pnv No.95/Ferrous Fum/Folic AC [ Caplet] 1 tab PO DAILY 03/24/19 [ History] Past Medical History HEENT History: Reports: Impaired Vision Respiratory History: Reports: Asthma Other Respiratory History: childhood asthma Genitourinary History: Reports: Other (See Below) Other Genitourinary History: one kidney-congenital 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: Reports: 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 Neurological History: Reports: Concussion Psychiatric 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 Dermatologic History: Reports: Eczema - Infectious Disease History Infectious Disease History: Reports: None - Past Surgical History Female Surgical History: Reports: Section, Other (See Below) Other Female Surgeries/Procedures: vaginal septum baptism Social & Family History - Family History HEENT: Reports: Hearing Impairment, Impaired Vision Cardiac: Reports: Heart Murmur : Reports: Renal Calculus OBGYN: Reports: 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: Reports: Arthritis, Back pain, Chronic Neurological: Reports: Parkinson's ED ROS GENERAL - Review of Systems Review Of Systems: ROS reveals no pertinent complaints other than HPI. ED EXAM, GENERAL - Physical Exam Exam: See Below (See dictation) Course - Vital Signs Last Recorded V/S: Last Vital Signs Temp 37.1 C 01/22/19 05:55 Pulse 129 H 01/22/19 05:55 Resp 20 01/22/19 05:55 BP 148/75 H 01/22/19 05:55 Pulse Ox 98 01/22/19 05:55 Departure - Departure Time of Disposition: 06:43 Disposition: Home, Self-Care 01 Condition: Good Clinical Impression: Influenza - Discharge Information Referrals: PCP,None [Primary Care Provider] - Additional Instructions: The following information is given to patients seen in the emergency department who are being discharged to home. This information is to outline your options for follow-up care. We provide all patients seen in our emergency department with a follow-up referral. The need for follow-up, as well as the timing and circumstances, are variable depending upon the specifics of your emergency department visit. If you don't have a primary care physician on staff, we will provide you with a referral. We always advise you to contact your personal physician following an emergency department visit to inform them of the circumstance of the visit and for follow-up with them and/or the need for any referrals to a consulting specialist. The emergency department will also refer you to a specialist when appropriate. This referral assures that you have the opportunity for followup care with a specialist. All of these measure are taken in an effort to provide you with optimal care, which includes your followup. Under all circumstances we always encourage you to contact your private physician who remains a resource for coordinating your care. When calling for followup care, please make the office aware that this follow-up is from your recent emergency room visit. If for any reason you are refused follow-up, please contact the [facility] emergency department at and asked to speak to the emergency department charge nurse. Motrin/Tylenol as directed infectious precautions as discussed return as needed as discussed
--- NOTE | 2019-01-22 06:43 | CR ---
INDICATION: Shortness of breath, cough TECHNIQUE: Chest radiograph 1 view COMPARISON: 04/21/18 FINDINGS: Mediastinum: The mediastinum is normal in appearance. The heart silhouette is normal in size and morphology. Lung: Both lungs are unremarkable in appearance with small lung volumes. No sign of pleural effusion seen. No pneumothorax is identified. 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: Unremarkable for age. IMPRESSION: 1. No acute cardiopulmonary disease is seen. Dictated by: Mahamed Rader MD @ 01/22/2019 06:40:43 (Electronically Signed)
[2019-01-22 07:11] VITALS: BP 130/81
== END 2019-01-22 07:11 | disposition home or self-care (01) ==
LOC: MW.ED 05:27
DX: J11.1 Influenza due to unidentified influenza virus with other respiratory manifestations (principal); J40 Bronchitis, not specified as acute or chronic; Z88.6 Allergy status to analgesic agent; Z88.2 Allergy status to sulfonamides; Z88.1 Allergy status to other antibiotic agents; Z79.899 Other long term (current) drug therapy
CPT/HCPCS: 71045; 71045-26; 87804; 99283-25

== ENCOUNTER 2019-04-11 00:22 | Emergency (ER) | payer MEDICAID ==
--- NOTE | 2019-04-11 00:47 | EDM.PDOC ---
ED HPI GENERAL MEDICAL PROBLEM - General Chief Complaint: Skin Complaint Stated Complaint: PT SPOKE TO NURSE Time Seen by Provider: 04/11/19 00:35 - History of Present Illness INITIAL COMMENTS - FREE TEXT/NARRATIVE: HISTORY AND PHYSICAL: History of present illness: The patient is a 33-year-old female who presents with complaints of a reddened area that she thought might be a skin abscess on her left breast that she noticed over the last 2-3 days. She said she noticed a reddened area there and there was some fluid leakage from this area last evening and now it looks more reddened and dark and she's concerned about mastoiditis. The patient is still breast-feeding her 2-year-old and has some concerns that this could be mastitis or an abscess from mastitis. She's had no fever chills chest pain or shortness of breath and patient had her last child 2 years ago so she is up-to-date on her tetanus shot. Is not been squeezing or manipulating the area and she has not taken any [id number] meds for it Review of systems: As per history of present illness and below otherwise all systems reviewed and negative. Past medical history: As per history of present illness and as reviewed below otherwise noncontributory. Surgical history: As per history of present illness and as reviewed below otherwise noncontributory. Social history: No reported history of drug or alcohol abuse. Family history: As per history of present illness and as reviewed below otherwise noncontributory. Physical exam: General: Well-developed well-nourished female who is nontoxic and vital signs are noted by me HEENT: Atraumatic, normocephalic, negative for conjunctival pallor or scleral icterus, mucous membranes moist, throat clear, neck supple, nontender, trachea midline. Lungs: Clear to auscultation, breath sounds equal bilaterally, chest nontender. Heart: S1S2, regular rate and rhythm no overt murmurs Abdomen: Soft, nondistended, nontender. NABS Pelvis: Deferred Genitourinary: Deferred. Rectal: Deferred. Extremities: Atraumatic, no pedal edema and full range of motion of all extremities Neurovascular unremarkable. Neuro: Awake, alert, oriented. Cranial nerves II through XII unremarkable. Cerebellum unremarkable. Motor and sensory unremarkable throughout. Exam nonfocal. Skin: On examination of the breasts bilaterally the right breast has some circular areas of old scarring seen but there is no soft tissue injuries appreciated and on the left breast at approximately 1 to 2 o'clock position several centimeters from the areola there is a small 1 cm circular area of well- demarcated redness and induration which is palpable and mobile, it is not fluctuant, and within the superficial soft tissues. There is no erythema of the breast nor is there any tenderness or fullness/fluctuant of this area or of the ducts in this region. There is no axillary adenopathy or supraclavicular adenopathy. Diagnostics: [facility] Therapeutics: None I discussed with the patient that this lesion on her left breast is very superficial and does not involve the duct and it appears that it is already drained fluid and is no longer fluctuant. It does not involve the deep breast tissue or ducts and seems very superficial. We have done a test as she has been trying to get and picked in antibiotic appropriate for treatment of this local abscess with spontaneous drainage and cellulitis Impression: Abscess with spontaneous drainage left breast, localized cellulitis Definitive disposition and diagnosis as appropriate pending reevaluation and review of above. - Related Data Allergies Allergy/AdvReac Type Severity Reaction Status Date / Time hydrocodone [From Vicodin] Allergy Nausea Verified 04/11/19 00:33 sulfamethoxazole Allergy Nausea and Verified 04/11/19 00:33 [From Bactrim] Vomiting trimethoprim [From Bactrim] Allergy Nausea and Verified 04/11/19 00:33 Vomiting Home Meds: Home Meds Pnv No.95/Ferrous Fum/Folic AC [ Caplet] 1 tab PO DAILY 01/22/19 [ History] Past Medical History HEENT History: Reports: Impaired Vision Respiratory History: Reports: Asthma Other Respiratory History: childhood asthma Genitourinary History: Reports: Other (See Below) Other Genitourinary History: one kidney-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: Reports: 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 Neurological History: Reports: Concussion Psychiatric 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 Dermatologic History: Reports: Eczema - Infectious Disease History Infectious Disease History: Reports: None - Past Surgical History Female Surgical History: Reports: Section, Other (See Below) Other Female Surgeries/Procedures: vaginal septum episcopalian Social & Family History - Family History HEENT: Reports: Hearing Impairment, Impaired Vision Cardiac: Reports: Heart Murmur : Reports: Renal Calculus OBGYN: Reports: 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: Reports: Arthritis, Back pain, Chronic Neurological: Reports: Parkinson's - Caffeine Use Caffeine Use: Reports: None ED ROS GENERAL - Review of Systems Review Of Systems: ROS reveals no pertinent complaints other than HPI. ED EXAM, SKIN/RASH Exam: See Below (See dictation) Course - Vital Signs Last Recorded V/S: Last Vital Signs Temp 36.4 C 04/11/19 00:30 Pulse 103 H 04/11/19 00:30 Resp BP 138/91 H 04/11/19 00:30 Pulse Ox 98 04/11/19 00:30 - Orders/Labs/Meds Labs: Laboratory Tests 04/11/19 Range/Units 00:40 Urine HCG, Qual NEGATIVE (NEGATIVE) Departure - Departure Time of Disposition: :12 Disposition: Home, Self-Care 01 Condition: Good Clinical Impression: History of drainage of abscess Cellulitis Qualifiers: Site of cellulitis: other site Qualified Code(s): L03.818 - Cellulitis of other sites - Discharge Information Referrals: PCP,None [Primary Care Provider] - Forms: ED Department Discharge Additional Instructions: The following information is given to patients seen in the emergency department who are being discharged to home. This information is to outline your options for follow-up care. We provide all patients seen in our emergency department with a follow-up referral. The need for follow-up, as well as the timing and circumstances, are variable depending upon the specifics of your emergency department visit. If you don't have a primary care physician on staff, we will provide you with a referral. We always advise you to contact your personal physician following an emergency department visit to inform them of the circumstance of the visit and for follow-up with them and/or the need for any referrals to a consulting specialist. The emergency department will also refer you to a specialist when appropriate. This referral assures that you have the opportunity for followup care with a specialist. All of these measure are taken in an effort to provide you with optimal care, which includes your followup. Under all circumstances we always encourage you to contact your private physician who remains a resource for coordinating your care. When calling for followup care, please make the office aware that this follow-up is from your recent emergency room visit. If for any reason you are refused follow-up, please contact the [facility] emergency department at and ask to speak to the emergency department charge nurse. Primary care- Internal Medicine and Family [address] [address] Do not manipulate the area and keep it clean and dry with mild soap and water pat dry and you may apply bacitracin or Neosporin. Please take antibiotics until they are finished for the localized infection and continue to monitor the symptoms. Please call and schedule a follow-up appoint with your provider in the clinic or one of hours for reevaluation further care and return to ER as needed and as discussed. Please refrain from breast-feeding on that side until you're done with the antibiotics Have been prescribed Bactrim the Inst[facility] Meds for this infection
[2019-04-11 02:53] VITALS: BP 130/77
== END 2019-04-11 01:50 | disposition home or self-care (01) ==
LOC: MW.ED 00:22
DX: N61.1 Abscess of the breast and nipple (principal); Z88.1 Allergy status to other antibiotic agents; Z88.2 Allergy status to sulfonamides
CPT/HCPCS: 81025; 99283

== ENCOUNTER 2020-02-01 00:27 | Inpatient (IN) | payer MEDICAID ==
[2020-02-01] MEDS ORDERED: Ondansetron 4 MG/2 ML SDV IVPUSH PRN ×3 (01:15→03:42)
[2020-02-01] MEDS ORDERED: Sodium Chloride 0.9% 2.5 ML Syringe FLUSH PRN (01:15)
[2020-02-01] MEDS ORDERED: ceFAZolin 2 GM in Premix Bag 1 BAG IV ONE (01:15)
[2020-02-01] MEDS ORDERED: Citric Acid/Sodium Citrate Solution 30 ML Cup PO ONE (01:15)
[2020-02-01] MEDS ORDERED: Sodium Chloride 0.9% 10 ML SDV IV PRN (01:15)
[2020-02-01] MEDS ORDERED: Oxytocin/0.9 % Sodium Chloride 30 UNIT/500 ML BAG IV SCH (01:15)
[2020-02-01] MEDS ORDERED: Sodium Chloride 0.9% 10 ML Syringe FLUSH PRN (01:15)
[2020-02-01] MEDS ORDERED: Ampicillin 2 GM in Sodium Chloride 0.9% 100 ML IV ONE (01:30)
[2020-02-01] MEDS: Lactated Ringers 1,000 ML IV SCH ×4 (01:45→14:31)
[2020-02-01] MEDS ORDERED: Nalbuphine 10 MG/1 ML Vial IVPUSH PRN ×2 (02:14→03:17)
--- NOTE | 2020-02-01 02:19 | PCM.LDHP ---
L&D History of Present Illness - General Date of Service: 02/01/20 Admit Problem/Dx: Patient Status Order with Admit Dx/Problem 02/01/20 01:15 Patient Status [ADT] Routine Admission Diagnosis/Problem Admission Diagnosis/Problem 02/01/20 02:14 34 yo presenting to L&D at 39 1/7 weeks with grossly ruptured membranes; patient has uterine didelphys and congenital single kidney; A+, Rubella equivocal, GBS positive Source of Information: Patient History Limitations: Reports: No Limitations - Related Data Allergies/Adverse Reactions: Allergies Allergy/AdvReac Type Severity Reaction Status Date / Time hydrocodone [From Vicodin] Allergy Nausea Verified 01/31/20 15:00 sulfamethoxazole Allergy Nausea and Verified 01/31/20 15:00 [From Bactrim] Vomiting trimethoprim [From Bactrim] Allergy Nausea and Verified 01/31/20 15:00 Vomiting Home Medications: Home Meds Pnv No.95/Ferrous Fum/Folic AC [ Caplet] 1 tab PO DAILY 01/22/19 [ History] Past Medical History HEENT History: Other HEENT History: wears glasses Cardiovascular History: Respiratory History: Reports: Asthma Other Respiratory History: childhood asthma- no inhaler currently Gastrointestinal History: Reports: None Genitourinary History: Reports: Other (See Below) Other Genitourinary History: one kidney-congenital, 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: 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 History: Reports: Fracture Other 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 History: hx of fx right clavicle, left ring finger and possible fx foot Neurological History: Reports: Concussion Psychiatric History: Endocrine/Metabolic History: Reports: Obesity/BMI 30+ Hematologic History: Reports: None Immunologic History: Reports: None Oncologic (Cancer) History: Reports: None Dermatologic History: Reports: Eczema - Infectious Disease History Infectious Disease History: Reports: None - Past Surgical History Head Surgeries/Procedures: Reports: None Female Surgical History: Reports: Section, Other (See Below) Other Female Surgeries/Procedures: vaginal septum congregational x2, opening of cervix on right uterus Social & Family History - Family History HEENT: Reports: Hearing Impairment, Impaired Vision Cardiac: Reports: Heart Murmur : Reports: Renal Calculus OBGYN: Reports: 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: Reports: Arthritis, Back pain, Chronic Neurological: Reports: Parkinson's - Caffeine Use Caffeine Use: Reports: None H&P Review of Systems - Review of Systems: Review Of Systems: See Below General: Reports: No Symptoms HEENT: Reports: No Symptoms Pulmonary: Reports: No Symptoms Cardiovascular: Reports: No Symptoms Gastrointestinal: Reports: No Symptoms Genitourinary: Reports: No Symptoms 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: Reports: No Symptoms Skin: Reports: No Symptoms Psychiatric: Reports: No Symptoms Neurological: Reports: No Symptoms Hematologic/Lymphatic: Reports: No Symptoms Immunologic: Reports: No Symptoms L&D Exam - Exam Exam: See Below - Vital Signs Weight: 258 lb - OB Specific Contraction Intensity: Mild to Moderate Movement: Active Heart Tones: Present Heart Rate (FHR) Variability: Moderate (6-25 bmp) - Burgess Score Burgess Score Consistency: Soft Burgess Score Effacement: 51-70% Burgess Score Dilation: 3-4 cm Burgess Score Infant's Station: -2 - Exam General: Alert, Oriented, Cooperative Lungs: Normal Respiratory Effort GI/Abdominal Exam: Soft, Non-Tender Rectal Exam: Deferred Genitourinary: Deferred Back Exam: Normal Inspection, Full Range of Motion Extremities: Normal Inspection, Normal Range of Motion, Non-Tender, Normal Capillary Refill Skin: Warm, Dry, Intact Neurological: Normal Gait, Normal Speech, Normal Tone, Sensation Intact Psychiatric: Alert, Normal Affect, Normal Mood - Patient Data Lab Results Last 24 hrs: Laboratory Results - last 24 hr 02/01/20 Range/Units 01:48 WBC 8.52 (4.0-11.0) K/uL RBC 4.29 L (4.30-5.90) M/uL Hgb 13.4 (12.0-16.0) g/dL Hct 39.8 (36.0-46.0) % MCV 92.8 (80.0-98.0) fL MCH 31.2 (27.0-32.0) pg MCHC 33.7 (31.0-37.0) g/dL RDW Std Deviation 46.8 (28.0-62.0) fl RDW Coeff of Fatuma 14 (11.0-15.0) % Plt Count 245 (150-400) K/uL MPV 9.30 (7.40-12.00) fL Result Diagrams: 02/01/20 01:48 - Problem List (1) Supervision of normal IUP (intrauterine ) in multigravida SNOMED Code(s): 235305745, 625287836, 984041591 ICD Code: Z34.80 - ENCOUNTER FOR SUPRVSN OF NORMAL , UNSP TRIMESTER Status: Acute Priority: High Current Visit: Yes Qualifiers: Trimester: third trimester Qualified Code(s): Z34.83 - Encounter for supervision of other normal , third trimester (2) Uterus didelphus in SNOMED Code(s): 77246169 ICD Code: O34.599 - MATERNAL CARE FOR OTH ABNLT OF GRAVID UTERUS, UNSP TRIMESTER; Q51.28 - OTHER DOUBLING OF UTERUS, OTHER SPECIFIED Status: Acute Priority: High Current Visit: Yes Qualifiers: Trimester: third trimester Qualified Code(s): O34.593 - Maternal care for other abnormalities of gravid uterus, third trimester; Q51.28 - Other doubling of uterus, other specified Problem List Initiated/Reviewed/Updated: Yes Orders Last 24hrs: Active Orders 24 hr Category Date Time Status Patient Status [ADT] Routine ADT 02/01/20 01:15 Active Non Stress Test [RC] PER UNIT ROUTINE Care 02/01/20 01:15 Active Notify Provider Vital Signs [RC] PRN Care 02/01/20 01:17 Active Procedure Site Prep Instruct [RC] ASDIRECTED Care 02/01/20 01:15 Active Up ad Lydia [RC] ASDIRECTED Care 02/01/20 01:15 Active Verify Patient Consent Obtain [RC] ASDIRECTED Care 02/01/20 01:15 Active Vital Signs [RC] PER UNIT ROUTINE Care 02/01/20 01:15 Active RPR (SYPHILIS SERO) W/ RFLX [REF] Routine Lab 02/01/20 01:48 Received TYPE AND SCREEN [BBK] Routine Lab 02/01/20 01:48 Received Ampicillin 1 gm Med 02/01/20 05:30 Active Sodium Chloride 0.9% [Normal Saline] 50 ml IV Q4H Lactated Ringers [Ringers, Lactated] 1,000 ml Med 02/01/20 01:15 Active IV BOLUS Ondansetron [Zofran] Med 02/01/20 01:15 Active 4 mg IVPUSH Q4H PRN Oxytocin/0.9 % Sodium Chloride [Oxytocin 30 Unit/500 ML Med 02/01/20 01:15 Active -NS] 30 unit in 500 ml IV TITRATE Sodium Chloride 0.9% [Normal Saline] Med 02/01/20 01:15 Active 10 ml IV ASDIRECTED PRN Sodium Chloride 0.9% [Saline Flush] Med 02/01/20 01:15 Active 10 ml FLUSH ASDIRECTED PRN Sodium Chloride 0.9% [Saline Flush] Med 02/01/20 01:15 Active 2.5 ml FLUSH ASDIRECTED PRN Peripheral IV Insertion Adult [OM.PC] Routine Oth 02/01/20 01:15 Ordered Schedule Procedure [COMM] Per Unit Routine Oth 02/01/20 01:15 Ordered Resuscitation Status Routine Resus Stat 02/01/20 01:15 Ordered Medication Orders Lactated Ringer's (Ringers, Lactated) 1,000 mls @ 500 mls/hr IV BOLUS JUAN Last Admin: 02/01/20 01:45 Dose: 500 mls/hr Oxytocin/Sodium Chloride (Oxytocin 30 Unit/500 Ml-Ns) 30 unit in 500 mls @ 250 mls/hr IV TITRATE JUAN Ampicillin Sodium 1 gm/ Sodium (Chloride) 50 mls @ 100 mls/hr IV Q4H JUAN Ondansetron HCl (Zofran) 4 mg IVPUSH Q4H PRN PRN Reason: Nausea/Vomiting Sodium Chloride (Saline Flush) 10 ml FLUSH ASDIRECTED PRN PRN Reason: Keep Vein Open Sodium Chloride (Saline Flush) 2.5 ml FLUSH ASDIRECTED PRN PRN Reason: Keep Vein Open Sodium Chloride (Normal Saline) 10 ml IV ASDIRECTED PRN PRN Reason: IV Use Assessment/Plan Comment:: Admit: A: 34 yo presenting to L&D at 39 1/7 weeks with grossly ruptured membranes ; patient has uterine didelphys and congenital single kidney; A+, Rubella equivocal, GBS positive; prior delivery due to breech presentation; sophie q3 minutes; 3/70%/-2 per nurse report P: Dr. Peoples updated; plan for repeat delivery at 0300;
[2020-02-01] MEDS ORDERED: Morphine PF 10 MG/10 ML SDV ONE (03:10)
[2020-02-01] MEDS ORDERED: Octyl 2-Cyanoacrylate 1 Tube ONE (03:11)
[2020-02-01] MEDS ORDERED: Ondansetron 4 MG/2 ML SDV ONE (03:11)
[2020-02-01] MEDS ORDERED: ePHEDrine 50 MG/ML SDV ONE (03:11)
[2020-02-01] MEDS ORDERED: diphenhydrAMINE 50 MG/ML SDV IVPUSH PRN ×2 (03:17→03:42)
[2020-02-01] MEDS ORDERED: fentaNYL 100 MCG/2 ML SDV IVPUSH PRN (03:17)
[2020-02-01] MEDS ORDERED: Naloxone 0.4 MG/ML Syringe IVPUSH PRN (03:17)
[2020-02-01] MEDS ORDERED: Acetaminophen/oxyCODONE 325-5 MG Tab PO PRN ×3 (03:17→03:42)
--- NOTE | 2020-02-01 03:18 | PCM.PREANE ---
Preanesthetic Assessment - Anesthesia/Transfusion/Family Hx Anesthesia History: Prior Anesthesia Reaction Other Type of Anesthesia Reaction Comment: spinal lasted "too long" Family History of Anesthesia Reaction: No Transfusion History: No Prior Transfusion(s) Intubation History: Unknown - Review of Systems General: No Symptoms Pulmonary: No Symptoms Cardiovascular: No Symptoms Gastrointestinal: Abdominal Pain (labor pain) Neurological: No Symptoms Other: Reports: None - Physical Assessment Height: 5 ft 6 in Weight: 117.027 kg ASA Class: 2E Mental Status: Alert & Oriented x3 Airway Class: Mallampati = 2 Dentition: Reports: Normal Dentition Thyro-Mental Finger Breadths: 3 Mouth Opening Finger Breadths: 3 ROM/Head Extension: Full Lungs: Clear to Auscultation, Normal Respiratory Effort Cardiovascular: Regular Rate, Regular Rhythm - Lab Values: Laboratory Last Values WBC 8.52 K/uL (4.0-11.0) 02/01/20 01:48 RBC 4.29 M/uL (4.30-5.90) L 02/01/20 01:48 Hgb 13.4 g/dL (12.0-16.0) 02/01/20 01:48 Hct 39.8 % (36.0-46.0) 02/01/20 01:48 MCV 92.8 fL (80.0-98.0) 02/01/20 01:48 MCH 31.2 pg (27.0-32.0) 02/01/20 01:48 MCHC 33.7 g/dL (31.0-37.0) 02/01/20 01:48 RDW Std Deviation 46.8 fl (28.0-62.0) 02/01/20 01:48 RDW Coeff of Fatuma 14 % (11.0-15.0) 02/01/20 01:48 Plt Count 245 K/uL (150-400) 02/01/20 01:48 MPV 9.30 fL (7.40-12.00) 02/01/20 01:48 Blood Type A POSITIVE 02/01/20 01:48 Antibody Screen NEGATIVE 02/01/20 01:48 - Allergies Allergies/Adverse Reactions: Allergies Allergy/AdvReac Type Severity Reaction Status Date / Time hydrocodone [From Vicodin] Allergy Nausea Verified 01/31/20 15:00 sulfamethoxazole Allergy Nausea and Verified 01/31/20 15:00 [From Bactrim] Vomiting trimethoprim [From Bactrim] Allergy Nausea and Verified 01/31/20 15:00 Vomiting - Blood Blood Available: No - Anesthesia Plan Pre-Op Medication Ordered: None - Acknowledgements Anesthesia Type Planned: Spinal (general anesthesia back-up plan) Pt an Appropriate Candidate for the Planned Anesthesia: Yes Alternatives and Risks of Anesthesia Discussed w Pt/Guardian: Yes Pt/Guardian Understands and Agrees with Anesthesia Plan: Yes PreAnesthesia Questionnaire HEENT History: Other HEENT History: wears glasses Cardiovascular History: Respiratory History: Reports: Asthma Other Respiratory History: childhood asthma- no inhaler currently Gastrointestinal History: Reports: None Genitourinary History: Reports: Other (See Below) Other Genitourinary History: one kidney-congenital, 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 History: Reports: Fracture Other 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 History: hx of fx right clavicle, left ring finger and possible fx foot Neurological History: Reports: Concussion Psychiatric History: Endocrine/Metabolic History: Reports: Obesity/BMI 30+ Hematologic History: Reports: None Immunologic History: Reports: None Oncologic (Cancer) History: Reports: None Dermatologic History: Reports: Eczema - Infectious Disease History Infectious Disease History: Reports: None - Past Surgical History Head Surgeries/Procedures: Reports: None Female Surgical History: Reports: Section (under general anesthesia ( emergency )), Other (See Below) Other Female Surgeries/Procedures: vaginal septum protestant x2, opening of cervix on right uterus - HOME MEDS Home Medications: Home Meds Pnv No.95/Ferrous Fum/Folic AC [ Caplet] 1 tab PO DAILY 01/22/19 [ History] - CURRENT (IN HOUSE) MEDS Current Meds: Current Medications Lactated Ringer's (Ringers, Lactated) 1,000 mls @ 500 mls/hr IV BOLUS JUAN Last Admin: 02/01/20 01:45 Dose: 500 mls/hr Oxytocin/Sodium Chloride (Oxytocin 30 Unit/500 Ml-Ns) 30 unit in 500 mls @ 250 mls/hr IV TITRATE JUAN Ampicillin Sodium 1 gm/ Sodium (Chloride) 50 mls @ 100 mls/hr IV Q4H JUAN Nalbuphine HCl (Nubain) 10 mg IVPUSH Q1H PRN PRN Reason: Pain (moderate 4-6) Ondansetron HCl (Zofran) 4 mg IVPUSH Q4H PRN PRN Reason: Nausea/Vomiting Sodium Chloride (Saline Flush) 10 ml FLUSH ASDIRECTED PRN PRN Reason: Keep Vein Open Sodium Chloride (Saline Flush) 2.5 ml FLUSH ASDIRECTED PRN PRN Reason: Keep Vein Open Sodium Chloride (Normal Saline) 10 ml IV ASDIRECTED PRN PRN Reason: IV Use Discontinued Medications Citric Acid/Sodium Citrate (Bicitra Solution) 30 ml PO ONETIME ONE Stop: 02/01/20 01:16 Ephedrine Sulfate (Ephedrine Sulfate) Confirm Administered Dose 50 mg .ROUTE .STK-MED ONE Stop: 02/01/20 03:12 Cefazolin Sodium/Dextrose 2 gm (/ Premix) 50 mls @ 100 mls/hr IV ONETIME ONE Stop: 02/01/20 01:44 Ampicillin Sodium 2 gm/ Sodium (Chloride) 100 mls @ 200 mls/hr IV ONETIME ONE Stop: 02/01/20 01:59 Last Admin: 02/01/20 01:52 Dose: 200 mls/hr Morphine Sulfate (Duramorph Pf) Confirm Administered Dose 10 mg .ROUTE .STK-MED ONE Stop: 02/01/20 03:11 Octyl Cyanoacrylate (Dermabond Advance) Confirm Administered Dose 1 applic .ROUTE .STK-MED ONE Stop: 02/01/20 03:12 Ondansetron HCl (Zofran) Confirm Administered Dose 8 mg .ROUTE .STK-MED ONE Stop: 02/01/20 03:12
[2020-02-01] MEDS ORDERED: ceFAZolin/Dextrose,Iso-Osmotic 2 GM/50 ML Duplex Bag IV ONE (03:19)
[2020-02-01] MEDS ORDERED: Tranexamic Acid 1,000 MG in Sodium Chloride 0.9% 100 ML IV PRN (03:42)
[2020-02-01] MEDS ORDERED: Misoprostol 200 MCG Tab RECTAL PRN (03:42)
[2020-02-01] MEDS ORDERED: Bisacodyl 10 MG Supp RECTAL PRN (03:42)
[2020-02-01] MEDS ORDERED: Lanolin 100% Cream 7 GM Tube TOP PRN (03:42)
[2020-02-01] MEDS ORDERED: Methylergonovine 0.2 MG/1 ML Amp IM PRN (03:42)
[2020-02-01] MEDS ORDERED: Oxytocin 10 Units/1 ML SDV IM PRN (03:42)
[2020-02-01] MEDS ORDERED: Ketorolac 30 MG/ML SDV ONE (04:34)
--- NOTE | 2020-02-01 04:34 | PCM.OPNOTE ---
- General Post-Op/Procedure Note Date of Surgery/Procedure: 02/01/20 Operative Procedure(s): Repeat C/section. Pre Op Diagnosis: IUP 39+2 Previous C/section. Post-Op Diagnosis: Same Anesthesia Technique: Spinal Primary Surgeon: Gaston Peoples Computer Programmer: Shraddha Benitez EBL in mLs: 650 Complications: None Condition: Good
--- NOTE | 2020-02-01 05:12 | OR ---
SURGEON: Gaston Peoples MD DATE OF PROCEDURE: PREOPERATIVE DIAGNOSES: Intrauterine , 39 plus 2 weeks with spontaneous rupture of membranes and in active labor; previous section. POSTOPERATIVE DIAGNOSES: Intrauterine , 39 plus 2 weeks with spontaneous rupture of membranes and in active labor; previous section. OPERATION PERFORMED: Repeat low-transverse section. PRIMARY SURGEON: Gaston Peoples MD. FURNITURE ASSEMBLER: Shraddha Benitez, certified nurse white sidewall tire buffer. ANESTHESIA: Spinal, Ms. Sofia Rao and Dr. Choi ESTIMATED BLOOD LOSS: 650 mL. COMPLICATIONS: None. FINDINGS: Male fetus. score reported to be 8 and 9. The candy counter clerk is Dr. Blankenship. Weight is not available at the time of the dictation. INDICATION FOR SURGERY: Patient had previous section. She is 39 plus 3. She is scheduled for elective repeat section next week; however, she presented to Labor and Delivery with spontaneous rupture of membranes and active labor, so we went ahead and proceeded to do the section now. PROCEDURE IN DETAIL: The patient brought to the OR, properly identified. After adequate level of spinal anesthesia with a Mccray catheter in the bladder, the patient was prepped and draped in sterile fashion as usual. Low transverse Pfannenstiel skin incision was done. Eladia's fascia and rectus fascia were opened in direction of the incision. The 2 recti muscles were and peritoneal cavity was entered. Bladder flap was raised in the usual manner pushing the bladder away from the lower uterine segment. Low-transverse uterine incision was done and extended manually and fetus was in a vertex position, delivered without any problem, cried immediately, handed to the nurse, resuscitators and the candy counter clerk who is present at the time of the delivery. Later on the score reported to be 8 and 9. The weight is not available. The placenta delivered spontaneous, complete, and intact and repair of the lower uterine segment was done with 2-0 Vicryl continuous interlocking in 2 layers. Reperitonealization done with 3-0 Vicryl continuous and then the peritoneal cavity evacuated completely from all blood and blood clot and closed with 3-0 Vicryl continuous. The rectus fascia was closed with #1 PDS double strand continuous, Eladia's fascia with 3-0 Vicryl continuous, skin closed with 3-0 on a Thai needle in a subcuticular fashion. Instrument and sponge counts were correct. The patient tolerated the procedure well, went to recovery room in stable general condition. ATUL / MALVIN /[id number]
--- NOTE | 2020-02-01 05:50 | PCM.POSTAN ---
POST ANESTHESIA ASSESSMENT - MENTAL STATUS Mental Status: Alert, Oriented - VITAL SIGNS Vital Signs: Last Vital Signs Temp Pulse Resp BP Pulse Ox 99 02/01/20 05:17 - RESPIRATORY Respiratory Status: Respiratory Rate WNL, Airway Patent, O2 Saturation Stable - CARDIOVASCULAR CV Status: Pulse Rate WNL, Blood Pressure Stable - GASTROINTESTINAL GI Status: No Symptoms - PAIN Pain Score: 0 - POST OP HYDRATION Hydration Status: Adequate & Stable - OBSERVATIONS Free Text/Narrative:: Pt stable no concerns at this time. Spinal t11. Denies any complications
[2020-02-01] MEDS: Ketorolac 30 MG/ML SDV IVPUSH SCH ×3 (10:54→22:05)
[2020-02-01] MEDS: Docusate Sodium 100 MG Cap PO SCH ×2 (22:06→23:17)
[2020-02-01] MEDS: Ampicillin 1 GM in Sodium Chloride 0.9% 50 ML IV SCH ×2 (23:01→23:02)
[2020-02-02] MEDS: Ketorolac 30 MG/ML SDV IVPUSH SCH (04:13)
[2020-02-02] MEDS: Ampicillin 1 GM in Sodium Chloride 0.9% 50 ML IV SCH ×4 (05:17→18:16)
--- NOTE | 2020-02-02 09:14 | PCM.PNPP ---
- General Info Date of Service: 02/02/20 Functional Status: Reports: Pain Controlled - Review of Systems General: Reports: No Symptoms HEENT: Reports: No Symptoms Pulmonary: Reports: No Symptoms Cardiovascular: Reports: No Symptoms Gastrointestinal: Reports: No Symptoms Genitourinary: Reports: No Symptoms 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: Reports: No Symptoms Skin: Reports: No Symptoms Neurological: Reports: No Symptoms Psychiatric: Reports: No Symptoms - General Info Date of Service: 02/02/20 - Patient Data Vital Signs - Most Recent: Last Vital Signs Temp 36.3 C 02/02/20 08:17 Pulse 90 02/02/20 08:17 Resp 18 02/02/20 08:17 BP 112/57 L 02/02/20 08:17 Pulse Ox 97 02/02/20 08:17 Weight - Most Recent: 117.027 kg Lab Results - Last 24 Hours: Laboratory Results - last 24 hr 02/02/20 Range/Units 04:18 Hgb 10.2 L (12.0-16.0) g/dL Hct 31.6 L (36.0-46.0) % Med Orders - Current: Current Medications Bisacodyl (Dulcolax) 10 mg RECTAL ONETIME PRN PRN Reason: Constipation Diphenhydramine HCl (Benadryl) 25 mg IVPUSH Q6H PRN PRN Reason: Itching or Nausea Docusate Sodium (Colace) 100 mg PO BID [facility] Last Admin: 02/01/20 23:17 Dose: Not Given Emollient Ointment (Lansinoh Hpa) 0 gm TOP ASDIRECTED PRN PRN Reason: Sore Nipples Fentanyl (Sublimaze) 50 mcg IVPUSH Q1H PRN PRN Reason: Pain (severe 7-10) Lactated Ringer's (Ringers, Lactated) 1,000 mls @ 500 mls/hr IV BOLUS [facility] Last Admin: 02/01/20 03:26 Dose: 500 mls/hr Oxytocin/Sodium Chloride (Oxytocin 30 Unit/500 Ml-Ns) 30 unit in 500 mls @ 250 mls/hr IV TITRATE [facility] Ampicillin Sodium 1 gm/ Sodium (Chloride) 50 mls @ 100 mls/hr IV Q4H [facility] Last Admin: 02/02/20 05:17 Dose: Not Given Tranexamic Acid 1,000 mg/ (Sodium Chloride) 110 mls @ 660 mls/hr IV ONETIME PRN PRN Reason: Bleeding Lactated Ringer's (Ringers, Lactated) 1,000 mls @ 125 mls/hr IV ASDIRECTED JUAN Last Admin: 02/01/20 14:31 Dose: 125 mls/hr Ibuprofen (Motrin) 800 mg PO Q8H PRN PRN Reason: mild pain or fever Methylergonovine Maleate (Methergine) 0.2 mg IM ONETIME PRN PRN Reason: Excessive Vaginal Bleeding Misoprostol (Cytotec) 1,000 mcg RECTAL ONETIME PRN PRN Reason: excessive bleeding Nalbuphine HCl (Nubain) 10 mg IVPUSH Q1H PRN PRN Reason: Pain (moderate 4-6) Nalbuphine HCl (Nubain) 5 mg IVPUSH ASDIRECTED PRN PRN Reason: Itching Ondansetron HCl (Zofran) 4 mg IVPUSH Q4H PRN PRN Reason: Nausea/Vomiting Ondansetron HCl (Zofran) 4 mg IVPUSH Q6H PRN PRN Reason: Nausea Ondansetron HCl (Zofran) 4 mg IVPUSH Q4H PRN PRN Reason: Nausea/Vomiting Oxycodone/Acetaminophen (Percocet 325-5 Mg) 2 tab PO Q6H PRN PRN Reason: Pain (moderate 4-6) Oxycodone/Acetaminophen (Percocet 325-5 Mg) 1 tab PO Q4H PRN PRN Reason: Pain (moderate 4-6) Oxycodone/Acetaminophen (Percocet 325-5 Mg) 2 tab PO Q4H PRN PRN Reason: Pain (moderate 4-6) Oxytocin (Pitocin) 10 unit IM ASDIRECTED PRN PRN Reason: Excessive Vaginal Bleeding Sodium Chloride (Saline Flush) 10 ml FLUSH ASDIRECTED PRN PRN Reason: Keep Vein Open Sodium Chloride (Saline Flush) 2.5 ml FLUSH ASDIRECTED PRN PRN Reason: Keep Vein Open Sodium Chloride (Normal Saline) 10 ml IV ASDIRECTED PRN PRN Reason: IV Use Discontinued Medications Cefazolin Sodium/Dextrose (Ancef) Confirm Administered Dose 2 gm IV .STK-MED ONE Stop: 02/01/20 03:20 Citric Acid/Sodium Citrate (Bicitra Solution) 30 ml PO ONETIME ONE Stop: 02/01/20 01:16 Diphenhydramine HCl (Benadryl) 25 mg IVPUSH Q4H PRN PRN Reason: Itching Stop: 02/02/20 03:17 Last Admin: 02/01/20 06:21 Dose: 25 mg Ephedrine Sulfate (Ephedrine Sulfate) Confirm Administered Dose 50 mg .ROUTE .STK-MED ONE Stop: 02/01/20 03:12 Cefazolin Sodium/Dextrose 2 gm (/ Premix) 50 mls @ 100 mls/hr IV ONETIME ONE Stop: 02/01/20 01:44 Ampicillin Sodium 2 gm/ Sodium (Chloride) 100 mls @ 200 mls/hr IV ONETIME ONE Stop: 02/01/20 01:59 Last Admin: 02/01/20 01:52 Dose: 200 mls/hr Ketorolac Tromethamine (Toradol) 30 mg IVPUSH Q6H JUAN Stop: 02/02/20 04:01 Last Admin: 02/02/20 04:13 Dose: 30 mg Ketorolac Tromethamine (Toradol) Confirm Administered Dose 30 mg .ROUTE .STK- MED ONE Stop: 02/01/20 04:35 Morphine Sulfate (Duramorph Pf) Confirm Administered Dose 10 mg .ROUTE .STK-MED ONE Stop: 02/01/20 03:11 Naloxone HCl (Narcan) 0.1 mg IVPUSH ONETIME PRN PRN Reason: Respiratory Depression Stop: 02/02/20 03:17 Octyl Cyanoacrylate (Dermabond Advance) Confirm Administered Dose 1 applic .ROUTE .STK-MED ONE Stop: 02/01/20 03:12 Ondansetron HCl (Zofran) Confirm Administered Dose 8 mg .ROUTE .STK-MED ONE Stop: 02/01/20 03:12 - Infant Interaction Disposition, : in Room with Family Interaction: Holding Support Person: Significant Other - Recovery Exam Fundal Tone: Firm Fundal Level: 1 Fingerbreadths Below Umbilicus Fundal Placement: Midline Lochia Amount: Scant Lochia Color: Rubra/Red Perineum Description: Intact, Minimal Bruising/Swelling Episiotomy/Laceration: None Bladder Status: Voiding Urinary Elimination: Voided - Exam General: Alert, Oriented HEENT: Pupils Equal Neck: Supple Lungs: Clear to Auscultation, Normal Respiratory Effort Cardiovascular: Regular Rate, Regular Rhythm GI/Abdominal Exam: Normal Bowel Sounds, Soft, Non-Tender, No Organomegaly, No Distention, No Abnormal Bruit, No Mass, Pelvis Stable Extremities: Normal Inspection, Normal Range of Motion, Non-Tender, No Pedal Edema, Normal Capillary Refill Skin: Warm, Dry, Intact Wound/Incisions: Healing Well Neurological: No New Focal Deficit Psy/Mental Status: Alert, Normal Affect, Normal Mood - Problem List Review Problem List Initiated/Reviewed/Updated: Yes - My Orders Last 24 Hours: My Active Orders 02/01/20 09:00 Docusate Sodium [Colace] 100 mg PO BID 02/01/20 Lunch Regular Diet [DIET] 02/02/20 10:00 Ibuprofen [Motrin] 800 mg PO Q8H PRN - Assessment Assessment:: Status post repeat section postoperative day #1 patient is doing well ambulatory minimum bleeding on regular diet and voiding without any problem we are planning for her to be discharged in a.m. - Plan Plan:: Admit: A: 34 yo presenting to L&D at 39 1/7 weeks with grossly ruptured membranes ; patient has uterine didelphys and congenital single kidney; A+, Rubella equivocal, GBS positive; prior delivery due to breech presentation; sophie q3 minutes; 3/70%/-2 per nurse report P: Dr. Peoples updated; plan for repeat delivery at 0300;
[2020-02-02] MEDS: Docusate Sodium 100 MG Cap PO SCH ×2 (09:59→21:12)
[2020-02-02] MEDS ORDERED: Ibuprofen 800 MG Tab PO PRN (10:00)
--- NOTE | 2020-02-02 10:36 | PCM48HPAN ---
Post Anesthesia Note - EVALUATION WITHIN 48HRS OF ANESTHETIC Vital Signs in Normal Range: Yes Patient Participated in Evaluation: Yes Respiratory Function Stable: Yes Airway Patent: Yes Cardiovascular Function Stable: Yes Hydration Status Stable: Yes Pain Control Satisfactory: Yes Nausea and Vomiting Control Satisfactory: Yes Mental Status Recovered: Yes Vital Signs: Last Vital Signs Temp 36.3 C 02/02/20 08:17 Pulse 90 02/02/20 08:17 Resp 18 02/02/20 08:17 BP 112/57 L 02/02/20 08:17 Pulse Ox 97 02/02/20 08:17 - COMMENTS/OBSERVATIONS Free Text/Narrative:: No noted issues with nausea/vomiting. Pain under control. Encouraged patient to call with any anesthesia related issues.
[2020-02-03] MEDS: Ampicillin 1 GM in Sodium Chloride 0.9% 50 ML IV SCH ×2 (02:59→05:39)
--- NOTE | 2020-02-03 07:01 | PCM.DCSUM1 ---
Discharge Summary - Hospital Course Free Text/Narrative:: Sofia is a 34 yo POD2 S/P RCS. A pos, RE, GBS pos. Hemodynamically stable. Patient reports she is independently intaking nutrition and hydration, ambulating, and voiding. EBFing NBM, no problems or concerns at this time. Reports light vaginal bleeding, no clots. Patient expresses her readiness to be discharged today. Pain well controlled with PO ibuprofen 800 mg. Patient has no complaints or concerns at this time. Diagnosis: Stroke: No - Discharge Data Discharge Date: 02/03/20 Discharge Disposition: Home, Self-Care 01 Condition: Good - Referral to Home Health Primary Care Physician: Estee Parks MD - Discharge Diagnosis/Problem(s) (1) delivery delivered SNOMED Code(s): 070225823 ICD Code: O82 - ENCOUNTER FOR DELIVERY WITHOUT INDICATION Status: Acute Priority: High Current Visit: Yes - Patient Summary/Data Operative Procedure(s) Performed: Repeat C/section. - Patient Instructions Diet: Regular Diet as Tolerated, Drink 8-10+ Glasses/Day Activity: As Tolerated, No Lifting Over 10 Pounds Driving: May Drive Today Showering/Bathing: May Shower, No Tub Bathing/Swimming Wound/Incision Care: Keep Operative Site/Wound Site Clean and Dry Notify Provider of: Fever, Increased Pain, Swelling and Redness, Drainage, Nausea and/or Vomiting - Discharge Plan *PRESCRIPTION DRUG MONITORING PROGRAM REVIEWED*: No *COPY OF PRESCRIPTION DRUG MONITORING REPORT IN PATIENT RADHA: No Prescriptions/Med Rec: Hydrocodone/Acetaminophen [Hydrocodon-Acetaminophen 5-325] 1 each PO Q6HR #10 tablet Docusate Sodium [Colace] 100 mg PO BID #90 cap Ibuprofen [Motrin] 800 mg PO Q8H PRN #90 tablet PRN Reason: Pain Home Medications: Home Meds Pnv No.95/Ferrous Fum/Folic AC [ Caplet] 1 tab PO DAILY 01/22/19 [ History] Nystatin [Nystatin Crm] 15 gm TOP BID 02/01/20 [History] Docusate Sodium [Colace] 100 mg PO BID #90 cap 02/03/20 [Rx] Hydrocodone/Acetaminophen [Hydrocodon-Acetaminophen 5-325] 1 each PO Q6HR #10 tablet 02/03/20 [Rx] Ibuprofen [Motrin] 800 mg PO Q8H PRN #90 tablet 02/03/20 [Rx] Oxygen Therapy Mode: Room Air Referrals: [facility] [Outside] Gaston Peoples MD [Physician] - (1 week- February 08@ 3:45pm w/ Dr. Peoples week- March 19 @ 3:00pm w/ Dr. Peoples) - Discharge Summary/Plan Comment DC Time >30 min.: Yes - General Info Date of Service: 02/03/20 Admission Dx/Problem (Free Text: Patient Status Order with Admit Dx/Problem 02/01/20 01:15 Patient Status [ADT] Routine Admission Diagnosis/Problem Admission Diagnosis/Problem 02/01/20 02:14 34 yo presenting to L&D at 39 1/7 weeks with grossly ruptured membranes; patient has uterine didelphys and congenital single kidney; A+, Rubella equivocal, GBS positive Functional Status: Reports: Pain Controlled - Review of Systems General: Reports: No Symptoms HEENT: Reports: No Symptoms Pulmonary: Reports: No Symptoms Cardiovascular: Reports: No Symptoms Gastrointestinal: Reports: No Symptoms Genitourinary: Reports: No Symptoms 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: Reports: No Symptoms Skin: Reports: No Symptoms Neurological: Reports: No Symptoms Psychiatric: Reports: No Symptoms - Patient Data Vitals - Most Recent: Last Vital Signs Temp 96.8 F L 02/03/20 04:35 Pulse 78 02/03/20 04:35 Resp 16 02/03/20 04:35 BP 130/75 02/03/20 04:35 Pulse Ox 97 02/03/20 04:35 Weight - Most Recent: 258 lb I&O - Last 24 hours: Intake & Output 02/02/20 02/02/20 02/03/20 14:59 22:59 06:59 Intake Total 980 Output Total 800 Balance 180 Lab Results - Last 24 hrs: Laboratory Results - last 24 hr 02/01/20 Range/Units 01:48 RPR Non-Reac (Non-Reac) Med Orders - Current: Current Medications Bisacodyl (Dulcolax) 10 mg RECTAL ONETIME PRN PRN Reason: Constipation Diphenhydramine HCl (Benadryl) 25 mg IVPUSH Q6H PRN PRN Reason: Itching or Nausea Docusate Sodium (Colace) 100 mg PO BID JUAN Last Admin: 02/02/20 21:12 Dose: 100 mg Emollient Ointment (Lansinoh Hpa) 0 gm TOP ASDIRECTED PRN PRN Reason: Sore Nipples Fentanyl (Sublimaze) 50 mcg IVPUSH Q1H PRN PRN Reason: Pain (severe 7-10) Lactated Ringer's (Ringers, Lactated) 1,000 mls @ 500 mls/hr IV BOLUS [facility] Last Admin: 02/01/20 03:26 Dose: 500 mls/hr Oxytocin/Sodium Chloride (Oxytocin 30 Unit/500 Ml-Ns) 30 unit in 500 mls @ 250 mls/hr IV TITRATE [facility] Ampicillin Sodium 1 gm/ Sodium (Chloride) 50 mls @ 100 mls/hr IV Q4H [facility] Last Admin: 02/03/20 05:39 Dose: Not Given Tranexamic Acid 1,000 mg/ (Sodium Chloride) 110 mls @ 660 mls/hr IV ONETIME PRN PRN Reason: Bleeding Lactated Ringer's (Ringers, Lactated) 1,000 mls @ 125 mls/hr IV ASDIRECTED [facility] Last Admin: 02/01/20 14:31 Dose: 125 mls/hr Ibuprofen (Motrin) 800 mg PO Q8H PRN PRN Reason: mild pain or fever Last Admin: 02/03/20 02:57 Dose: 800 mg Methylergonovine Maleate (Methergine) 0.2 mg IM ONETIME PRN PRN Reason: Excessive Vaginal Bleeding Misoprostol (Cytotec) 1,000 mcg RECTAL ONETIME PRN PRN Reason: excessive bleeding Nalbuphine HCl (Nubain) 10 mg IVPUSH Q1H PRN PRN Reason: Pain (moderate 4-6) Nalbuphine HCl (Nubain) 5 mg IVPUSH ASDIRECTED PRN PRN Reason: Itching Ondansetron HCl (Zofran) 4 mg IVPUSH Q4H PRN PRN Reason: Nausea/Vomiting Ondansetron HCl (Zofran) 4 mg IVPUSH Q6H PRN PRN Reason: Nausea Ondansetron HCl (Zofran) 4 mg IVPUSH Q4H PRN PRN Reason: Nausea/Vomiting Oxycodone/Acetaminophen (Percocet 325-5 Mg) 2 tab PO Q6H PRN PRN Reason: Pain (moderate 4-6) Oxycodone/Acetaminophen (Percocet 325-5 Mg) 1 tab PO Q4H PRN PRN Reason: Pain (moderate 4-6) Oxycodone/Acetaminophen (Percocet 325-5 Mg) 2 tab PO Q4H PRN PRN Reason: Pain (moderate 4-6) Oxytocin (Pitocin) 10 unit IM ASDIRECTED PRN PRN Reason: Excessive Vaginal Bleeding Sodium Chloride (Saline Flush) 10 ml FLUSH ASDIRECTED PRN PRN Reason: Keep Vein Open Sodium Chloride (Saline Flush) 2.5 ml FLUSH ASDIRECTED PRN PRN Reason: Keep Vein Open Sodium Chloride (Normal Saline) 10 ml IV ASDIRECTED PRN PRN Reason: IV Use Discontinued Medications Cefazolin Sodium/Dextrose (Ancef) Confirm Administered Dose 2 gm IV .STK-MED ONE Stop: 02/01/20 03:20 Citric Acid/Sodium Citrate (Bicitra Solution) 30 ml PO ONETIME ONE Stop: 02/01/20 01:16 Diphenhydramine HCl (Benadryl) 25 mg IVPUSH Q4H PRN PRN Reason: Itching Stop: 02/02/20 03:17 Last Admin: 02/01/20 06:21 Dose: 25 mg Ephedrine Sulfate (Ephedrine Sulfate) Confirm Administered Dose 50 mg .ROUTE .STK-MED ONE Stop: 02/01/20 03:12 Cefazolin Sodium/Dextrose 2 gm (/ Premix) 50 mls @ 100 mls/hr IV ONETIME ONE Stop: 02/01/20 01:44 Ampicillin Sodium 2 gm/ Sodium (Chloride) 100 mls @ 200 mls/hr IV ONETIME ONE Stop: 02/01/20 01:59 Last Admin: 02/01/20 01:52 Dose: 200 mls/hr Ketorolac Tromethamine (Toradol) 30 mg IVPUSH Q6H JUAN Stop: 02/02/20 04:01 Last Admin: 02/02/20 04:13 Dose: 30 mg Ketorolac Tromethamine (Toradol) Confirm Administered Dose 30 mg .ROUTE .STK- MED ONE Stop: 02/01/20 04:35 Morphine Sulfate (Duramorph Pf) Confirm Administered Dose 10 mg .ROUTE .STK-MED ONE Stop: 02/01/20 03:11 Naloxone HCl (Narcan) 0.1 mg IVPUSH ONETIME PRN PRN Reason: Respiratory Depression Stop: 02/02/20 03:17 Octyl Cyanoacrylate (Dermabond Advance) Confirm Administered Dose 1 applic .ROUTE .STK-MED ONE Stop: 02/01/20 03:12 Ondansetron HCl (Zofran) Confirm Administered Dose 8 mg .ROUTE .STK-MED ONE Stop: 02/01/20 03:12 - Exam General: Reports: Alert, Oriented HEENT: Reports: Pupils Equal, Pupils Reactive, Mucous Membr. Moist/Annetta Neck: Reports: Supple Lungs: Reports: Clear to Auscultation, Normal Respiratory Effort Cardiovascular: Reports: Regular Rate, Regular Rhythm GI/Abdominal Exam: Normal Bowel Sounds, Soft, Non-Tender, No Organomegaly, No Distention, Other (Low transverse incision dressing intact, no drainage noted. Uterus firm U+1) (Female) Exam: Normal External Exam, Vaginal Bleeding (Moderate rubra lochia , no clots) Rectal (Female) Exam: Deferred Back Exam: Reports: Normal Inspection, Full Range of Motion Extremities: Normal Inspection, Normal Range of Motion, Non-Tender, No Pedal Edema, Normal Capillary Refill Skin: Reports: Warm, Dry, Intact Wound/Incisions: Reports: Healing Well Neurological: Reports: No New Focal Deficit Psy/Mental Status: Reports: Alert, Normal Affect, Normal Mood
[2020-02-03 08:24] VITALS: BP 119/84; PULSE 83
== END 2020-02-03 11:35 | disposition home or self-care (01) | DRG 788 ==
LOC: MW.OBCHECK 00:27 → MW.OB 01:14 → OBSVTOIN 01:15 → MW.OB 01:15
PROVIDERS: ADMIT Obstetrics & Gynecology; ATTEND Obstetrics & Gynecology
PROC: 10D00Z1 Extraction of Products of Conception, Low, Open Approach (ICD-10-PCS; principal; 2020-02-01)
DX: O34.211 Maternal care for low transverse scar from previous cesarean delivery (principal); O99.824 Streptococcus B carrier state complicating childbirth; Z3A.39 39 weeks gestation of pregnancy; Z37.0 Single live birth; O34.03 Maternal care for unspecified congenital malformation of uterus, third trimester; Q51.20 Other doubling of uterus, unspecified
CPT/HCPCS: 36415; 51702; 59025; 85014; 85018; 85027; 86592; 86593; 86850; 86900; 86901; A9270-GY; J0290; J0690; J1200; J1885; J2270; J2405; J7050; J7120

== ENCOUNTER 2024-03-11 12:54 | Emergency (ER) | payer MEDICAID ==
[2024-03-11 13:20] VITALS: BP 155/85; PULSE 103
== END 2024-03-11 14:03 | disposition home or self-care (01) ==
LOC: MW.ED 12:54
DX: H57.8A2 Foreign body sensation, left eye (principal); Z88.5 Allergy status to narcotic agent; Z88.2 Allergy status to sulfonamides; Z79.899 Other long term (current) drug therapy; Z75.8 Other problems related to medical facilities and other health care
CPT/HCPCS: 99282; 99283

== ENCOUNTER 2024-04-01 09:59 | Emergency (ER) | payer MEDICAID ==
[2024-04-01 11:05] LABS: APPEARANCE,URINE CLEAR; BILIRUBIN,URINE NEGATIVE (NEGATIVE); COLOR,URINE YELLOW; GLUCOSE,URINE NEGATIVE (NEGATIVE); KETONES,URINE NEGATIVE (NEGATIVE); LEUKOCYTE ESTERASE,URINE SMALL (NEGATIVE); NITRITE,URINE NEGATIVE (NEGATIVE); OCCULT BLOOD,URINE SMALL (NEGATIVE); PH,URINE 6.5 (5.0-8.0); PROTEIN,URINE NEGATIVE (NEGATIVE); UROBILINOGEN,URINE 0.2 EU/dL (<2.0)
[2024-04-01 11:13] LABS: BACTERIA,URINE FEW (NEGATIVE); EPITHELIAL CELLS,URINE OCCASIONAL (NONE-FEW); RBC,URINE 0-2 (0-2/HPF)
[2024-04-01] MEDS: Phenazopyridine 200 MG Tab PO ONE (11:38)
[2024-04-01] MEDS: Cefdinir 300 MG Cap PO ONE (11:38)
[2024-04-01 11:40] LABS: CANDIDA DNA PROBE NEGATIVE (NEGATIVE); GARDNERELLA DNA PROBE POSITIVE (NEGATIVE); TRICHOMONAS DNA PROBE NEGATIVE (NEGATIVE)
[2024-04-01] MEDS: metroNIDAZOLE 250 MG Tab PO ONE (11:59)
[2024-04-01 12:05] VITALS: BP 148/88; PULSE 100
== END 2024-04-01 12:05 | disposition home or self-care (01) ==
LOC: MW.ED 09:59
DX: N39.0 Urinary tract infection, site not specified (principal); N76.0 Acute vaginitis; Z75.8 Other problems related to medical facilities and other health care; Z79.899 Other long term (current) drug therapy; Z88.5 Allergy status to narcotic agent; Z88.2 Allergy status to sulfonamides; Z88.1 Allergy status to other antibiotic agents
CPT/HCPCS: 81001; 81025; 87086; 87480; 87510; 87660; 99283; A9270

== ENCOUNTER 2025-09-03 06:53 | Emergency (ER) | payer MEDICAID ==
[2025-09-03 07:34] LABS: BASOPHILS ABSOLUTE AUTO 0.02 K/uL (0.00-0.20); BASOPHILS PERCENT AUTO 0.3 % (0.0-1.0); EOSINOPHILS ABSOLUTE AUTO 0.15 K/uL (0.00-0.45); EOSINOPHILS PERCENT AUTO 2.1 % (0.0-6.0); IMMATURE GRAN ABSOLUTE AUTO 0.01 K/uL (0.00-0.05); IMMATURE GRAN PERCENT AUTO 0.1 % (0.0-0.4); LYMPHOCYTES ABSOLUTE AUTO 1.62 K/uL (1.00-4.80); LYMPHOCYTES PERCENT AUTO 22.3 % (24.0-44.0); MEAN PLATELET VOLUME 9.1 fL (9.4-12.3); MONOCYTES ABSOLUTE AUTO 0.56 K/uL (0.00-0.80); MONOCYTES PERCENT AUTO 7.7 % (0.0-8.0); NEUTROPHILS ABSOLUTE AUTO 4.91 K/uL (1.80-7.70); NEUTROPHILS PERCENT AUTO 67.5 % (41.0-71.0); NRBC ABSOLUTE 0.00 K/uL (0.00-0.02); NRBC PERCENT 0.0 /100WBC (0.0-0.2); PLATELET COUNT,PLT 236 K/uL (150-400); RED BLOOD CELL COUNT 4.22 M/uL (4.10-5.30); WHITE BLOOD CELL COUNT,WBC 7.27 K/uL (3.9-11.3)
[2025-09-03 08:28] LABS: A/G RATIO 0.9 (0.9-1.6); ALANINE AMINOTRANSFERASE,ALT 24.0 IU/L (14-63); ASPARTATE AMNIOTRANSFERASE,AST 14.0 IU/L (15-37); BILIRUBIN TOTAL 0.5 mg/dL (0.2-1.0); BLOOD UREA NITROGEN,BUN 10.0 mg/dL (7.0-18.0); CARBON DIOXIDE,CO2 24.4 mmol/L (21.0-32.0); CHLORIDE,CL 103.0 mmol/L (98-107); CREATININE 0.9 mg/dL (0.6-1.0); EST CRCL DRUG DOSING (CG) 76.26 mL/min; GLUCOSE RANDOM 89.0 mg/dL (74-106); POTASSIUM,K 3.6 mmol/L (3.5-5.1); PROTEIN TOTAL,TP 7.3 g/dL (6.4-8.2); SODIUM,NA 138.0 mmol/L (136-145)
[2025-09-03 08:29] LABS: ESTIMATED GFR 84.0 mL/min (>60)
[2025-09-03 08:43] LABS: APPEARANCE,URINE CLEAR; GLUCOSE,URINE NEGATIVE (NEGATIVE); OCCULT BLOOD,URINE TRACE-INTACT (NEGATIVE)
[2025-09-03 08:52] LABS: EPITHELIAL CELLS,URINE FEW (NONE-FEW)
[2025-09-03 09:42] VITALS: BP 138/77; PULSE 96
== END 2025-09-03 09:43 | disposition home or self-care (01) ==
LOC: MW.ED 06:53
DX: O20.0 Threatened abortion (principal); O99.211 Obesity complicating pregnancy, first trimester; E66.9 Obesity, unspecified; Z88.5 Allergy status to narcotic agent; Z88.2 Allergy status to sulfonamides; Z88.1 Allergy status to other antibiotic agents; Z3A.11 11 weeks gestation of pregnancy
CPT/HCPCS: 36415; 76801; 76801-26; 80053; 81001; 84702; 85025; 86900; 86901; 99284